=== PATIENT | female | born 1990 | race Caucasian/White ===

== ENCOUNTER 2016-06-14 07:05 | Emergency (ER) | payer BC ==
[~2016-06-14] VITALS: Ht 154.9 cm; Wt 51.3 kg
[2016-06-14 07:09] VITALS: BP 121/79; PULSE 102; RESP 16; TEMP 99.2; O2SAT 96
[2016-06-14 07:15] VITALS: BP 121/79; PULSE 102; RESP 16; TEMP 99.2; O2SAT 96
[2016-06-14] MEDS ORDERED: ZOFR4TAB PO (07:34)
--- NOTE | 2016-06-14 07:36 | PD ---
HPI Chief Complaint: Cold / Flu Symptoms Time Seen by Provider: 07:19 Travel History International Travel<30 days: No Contact w/Intl Traveler<30days: No Traveled to known affect area: No History of Present Illness HPI The patient was seen and examined in the presence of the nurse. Patient complains of flulike symptoms. She complains of nausea and vomiting and diarrhea and muscle aches and low-grade fever and congestion and cough. Symptoms severity is moderate. Duration 3 days PFSH Past Medical History Medical History: Denies Significant Hx Diminished Hearing: No Influenza Vaccination: No ?: Not LMP: 05/29/16 : 1 : 1 Ovarian Cysts: Yes Past Surgical History Appendectomy: Yes Social History Alcohol Use: No Tobacco Use: No Substance Use: No Allergies-Medications (Allergen,Severity, Reaction): Coded Allergies: No Known Allergies (Unverified , 06/14/16) Reported Meds & Prescriptions Reported Meds & Active Scripts Active No Active Prescriptions or Reported Medications Review of Systems General / Constitutional: Positive: Fever HENT: No: Headaches Cardiovascular: No: Chest Pain or Discomfort Respiratory: Positive: Cough Physical Exam Narrative GENERAL: Well-nourished, well-developed patient. SKIN: Warm and dry. HEAD: Normocephalic. EYES: No scleral icterus. No injection or drainage. NECK: Supple, trachea midline. No JVD or lymphadenopathy. CARDIOVASCULAR: Regular rate and rhythm without murmurs, gallops, or rubs. RESPIRATORY: Breath sounds equal bilaterally. No accessory muscle use. GASTROINTESTINAL: Abdomen soft, non-tender, nondistended. MUSCULOSKELETAL: No cyanosis, or edema. BACK: Nontender without obvious deformity. No CVA tenderness. Data Data Last Documented VS Vital Signs Date Time Temp Pulse Resp B/P Pulse Ox O2 Delivery O2 Flow Rate FiO2 06/14/16 07:15 99.2 102 16 121/79 96 06/14/16 07:09 Room Air MDM Medical Decision Making Medical Screen Exam Complete: Yes Emergency Medical Condition: Yes Medical Record Reviewed: Yes Differential Diagnosis Flu syndrome, bronchitis, URI Narrative Course I have reviewed the patient's electronic medical record. Patient's exam is benign and vitals normal May have a flulike illness Zofran prescribed Spontaneous resolution is expected Diagnosis Primary Impression: Acute viral syndrome Additional Impression: Nausea vomiting and diarrhea Additional Instructions: The patient was advised to follow up with their physician and return if they worsen. I have recommended clear liquids for 24 hours, then gradually advance as tolerated. Med/Other Pt SpecificInfo: Prescription(s) given Scripts Ondansetron (Zofran)4 Mg Tab4 Mg PO Q6HR PRN (NAUSEA OR VOMITING) #10 TAB Ref 0 Prov:Justin Wilcox MD 06/14/16 Disposition: 01 DISCHARGE HOME Condition: Stable Justin Wilcox MD Jun 14, 2016 07:35
== END 2016-06-14 07:49 | disposition home or self-care (01) ==
LOC: PHED 07:05
DX: B34.9 Viral infection, unspecified (principal)
CPT/HCPCS: 99283

== ENCOUNTER 2017-05-21 14:51 | Emergency (ER) | payer BC, MEDICAID ==
[~2017-05-21 14:51] MED LIST: ZOFR4TAB PO
--- NOTE | 2017-05-21 15:47 | PD ---
HPI Chief Complaint Lower abdominal pain low back pain today after working today and she is supposed to work tomorrow she states that she has been working more than she should have working as many 6 days a week now Date Seen: May 21, 2017 Time Seen: 15:36 Travel History International Travel<30 Days: No Contact w/Intl Traveler<30Days: No Known Affected Area: No History of Present Illness HPI Patient is 26-year-old white female at [address] Schmidt of her care complains of lower abdominal pain and low back pain after working too much today and recently. Patient went from working 3 days a week to now 6 days a week and she has overdone it. She has not rachelle heart tones are reactive and she has no bleeding or leakage Weeks Gestation: 31 Para: 0 : 2 Miscarriage: 1 History Obstetric History Obstetric History 1 early loss Social History Alcohol Use: No Tobacco Use: No Substance Abuse: No Allergies-Medications (Allergen,Severity, Reaction): Coded Allergies: No Known Allergies (Unverified , 06/14/16) Home Meds Active Scripts Ondansetron (Zofran) 4 Mg Tab, 4 MG PO Q6HR Y for NAUSEA OR VOMITING, #10 TAB 0 Refills Prov:Justin Wilcox MD 06/14/16 Review of Systems General / Constitutional: No: Fever, Weight Gain, Chills, Other Eyes: No: Diploplia, Blurred Vision, Visual changes, Pain, Photophobia HENT: No: Headaches, Vertigo, Lightheadedness Cardiovascular: No: Irregular Rhythm, Chest Pain or Discomfort, Palpitations, Tachycardia, Syncope, Varicosities, Edema, Cyanosis Respiratory: No: Cough, Short of Breath, Other Gastrointestinal: Abdominal Pain, No: Nausea, Vomiting, Diarrhea Genitourinary: No: Decreased Urinary Output, Oliguria Musculoskeletal: No: Limited ROM, Weakness, Cramping, Edema, Pain Skin: No Rash, No Itching, No Dryness, No Lumps, No Change in Pigmentation, No Change in Nails, No Alopecia, No Lesions Neurologic: No: Weakness, Dizziness, Syncope, Focal Abnormalities, Coordination Problem, Headache, Slurred Speech, Seizures Psychiatric: No: Depression, Suicidal Ideations, Homicidal Ideation Endocrine: No: Heat Intolerance, Cold Intolerance, Polydipsia, Polyuria, Other Physical Exam Narrative GENERAL: Well-nourished, well-developed patient. SKIN: Warm and dry. HEAD: Normocephalic and atraumatic. EYES: No scleral icterus. No injection or drainage. ENT: No nasal drainage noted. Mucous membranes pink. Airway patent. NECK: Supple, trachea midline. No JVD. CARDIOVASCULAR: Regular rate and rhythm without murmurs, gallops, or rubs. RESPIRATORY: Breath sounds equal bilaterally. No accessory muscle use. BREASTS: Bilateral exam showed no masses , no retractions, no nipple discharge. ABDOMEN/GI: Abdomen soft, non-tender, bowel sounds present, no rebound, no guarding Gravid to [-31] weeks size Fundal Height: [31-] GENITOURINARY: External Genitalia: intact and normal in appearance BUS glands: [-] Cervix: [post-] Dilatation: [0-] Effacement: [0-] Station: [-3] Membranes: [intact ] Uterine Contractions: [none-] FHT's: Category: [1-] Baseline: [133-] Reactive: [R-] Variability: [mod-] Decels: [none-] EXTREMITIES: No cyanosis or edema. BACK: Nontender without obvious deformity. No CVA tenderness. NEUROLOGICAL: Awake and alert. Motor and sensory grossly within normal limits. Five out of 5 muscle strength in all muscle groups. Normal speech. Data Data Labs Urine dip on oh BD is negative except for trace blood and trace leukocyte esterase MDM Interpretation(s) Patient is 26-year-old white female A1 at 31 weeks who sees [facility] for care presents planning a lower abdominal pain and low back pain today. And this seems to be work-related stress and soft tissue strain more than anything else. She is not rachelle her urine is negative. heart tones reactive and she is not having any contractions on the monitor. Urine shows only a trace of blood and leukocyte esterase otherwise negative. Plan Plan for the patient to hydrate with fluids at home, Tylenol liberally for pain , heating pad in the front and back if needed, hot bath if needed for pain relief. She is to increase her fluids for hydration. And bedrest as much as possible. We will work note for tomorrow so she can stay in bed Diagnosis Diagnosis: Primary Impression: Lower abdominal pain Additional Impressions: Low back pain during in third trimester 31 weeks gestation of Disposition: 01 DISCHARGE HOME Condition: Stable Departure Forms: Work Release Enter return to work date: May 23, 2017 Special Instructions: bedrest when having pain in Ld Clement II, MD May 21, 2017 15:46
== END 2017-05-21 16:06 | disposition home or self-care (01) ==
LOC: HOBED 14:51
DX: O26.893 Other specified pregnancy related conditions, third trimester (principal); M54.5 Low back pain; R10.30 Lower abdominal pain, unspecified; Z3A.31 31 weeks gestation of pregnancy
CPT/HCPCS: 99284

== ENCOUNTER 2017-05-31 11:34 | Observation (INO) | payer MEDICAID ==
[~2017-05-31] VITALS: Ht 167.6 cm; Wt 68.0 kg
[2017-05-31] MEDS ORDERED: ONDANSETRON HCL 4 MG/2 ML VIAL ONE ×2 (12:54→19:37)
[2017-05-31 13:13] LABS: AUTOMATED NEUTROPHIL # 15.7 TH/MM3 (1.8-7.7); BASOPHIL % 0.2 % (0.0-2.0); EOSINOPHIL # 0.1 TH/MM3 (0-0.4); EOSINOPHIL % 0.4 % (0.0-4.0); HEMATOCRIT 32.4 % (35.0-46.0); HEMOGLOBIN 10.6 GM/DL (11.6-15.3); LYMPH % 8.6 % (9.0-44.0); LYMPHOCYTE # 1.6 TH/MM3 (1.0-4.8); MEAN CELL VOLUME 85.4 FL (80.0-100.0); MEAN CORPUSCULAR HEMOGLOBIN 27.9 PG (27.0-34.0); MEAN CORPUSCULAR HGB CONC 32.7 % (32.0-36.0); MEAN PLATELET VOLUME 9.3 FL (7.0-11.0); MONO % 7.6 % (0.0-8.0); MONOCYTE # 1.4 TH/MM3 (0-0.9); NEUT % 83.2 % (16.0-70.0); PLATELET COUNT 231 TH/MM3 (150-450); RED BLOOD COUNT 3.79 MIL/MM3 (4.00-5.30); RED CELL DISTRIBUTION WIDTH 12.8 % (11.6-17.2); WHITE BLOOD COUNT 18.8 TH/MM3 (4.0-11.0)
[2017-05-31 13:56] LABS: BACTERIA, URINE RARE /hpf; BILIRUBIN, URINE NEG (NEG); BLOOD, URINE MOD (NEG); GLUCOSE,URINE NEG (NEG); KETONE, URINE TRACE mg/dL (NEG); NITRITE,URINE NEG (NEG); SQUAMOUS EPITHELIAL CELL URINE 12 /hpf (0-5); TRANSITIONAL EPI CELLS, URINE <1 /hpf; URINE COLOR LIGHT-YELLOW (YELLW/STRAW); URINE LEUKOCYTE ESTERASE SMALL (NEG)
[2017-05-31 13:58] LABS: BICARBONATE 21.7 MEQ/L (21.0-32.0); CALCIUM 8.8 MG/DL (8.5-10.1); CREATININE 0.63 MG/DL (0.50-1.00)
--- NOTE | 2017-05-31 14:41 | RADRPT ---
EXAM DATE/TIME: 05/31/2017 13:48 [facility] COMPARISON: No previous studies available for comparison. INDICATIONS : Flank pain. MEDICAL HISTORY : 33 weeks . Ovarian cysts. SURGICAL HISTORY : Appendectomy. ENCOUNTER: Initial ACUITY: 1 day PAIN SCORE: 3/10 LOCATION: Bilateral flank MEASUREMENTS: RIGHT KIDNEY: 10.0 x 5.4 x 6.3 cm LEFT KIDNEY: 12.1 x 6.5 x 5.8 cm FINDINGS: RIGHT KIDNEY: Renal cortex is normal in thickness and echotexture. No hydronephrosis, stone, or mass. LEFT KIDNEY: Renal cortex is normal in thickness and echotexture. No hydronephrosis, stone, or mass. BLADDER: Nonvisualized. CONCLUSION: Unremarkable bilateral renal ultrasound. No evidence of hydronephrosis. Naeem Friend MD on May 31, 2017 at 14:39 Board Certified Radiologist. This report was verified electronically.
--- NOTE | 2017-05-31 19:01 | HHI.HP ---
History & Physical H&P HPI Chief Complaint flank pain Date Seen: May 31, 2017 Time Seen: 18:32 Travel History International Travel<30 Days: No Contact w/Intl Traveler<30Days: No Known Affected Area: No History of Present Illness HPI pt. presents w/ c/o severe left falnk pain. pt. is a @ [address] Ward states she had sudden onset of severe right sided flank pain. pt. states at worst was 10/10, but constan 7-8/10. pt. denies n/v , fever/chills, voiding w/o diff. pt. states no dysuria, but noticed that her urine has been blood tinged since just before the pain began at 10 pm last night. pt. also notes some groin discomfort. +FM, no lof/vb. pt. have ua here show large blood and rbcs. also show ketones and minimal bacteria and ian lulu. pt. have renal us show no hydro or stones. pt. w/ h/o stones. Weeks Gestation: 33 Para: 0 : 2 History Past Medical History Medical History: Denies Significant Hx Past Surgical History Surgical History: No Previous Surgery Family History Family History: Negative Social History Alcohol Use: No Tobacco Use: No Substance Abuse: No Allergies-Medications (Allergen,Severity, Reaction): Coded Allergies: No Known Allergies (Unverified , 06/14/16) Home Meds Active Scripts Ondansetron (Zofran) 4 Mg Tab, 4 MG PO Q6HR Y for NAUSEA OR VOMITING, #10 TAB 0 Refills Prov:Justin Wilcox MD 06/14/16 Review of Systems Except as stated in HPI: all other systems reviewed are Neg Physical Exam Vital Signs Date Time Temp Pulse Resp B/P (MAP) Pulse Ox O2 Delivery O2 Flow Rate FiO2 05/31/17 14:30 18 Narrative GENERAL: Well-nourished, well-developed patient. SKIN: Warm and dry. HEAD: Normocephalic and atraumatic. EYES: No scleral icterus. No injection or drainage. ENT: No nasal drainage noted. Mucous membranes pink. Airway patent. NECK: Supple, trachea midline. No JVD. CARDIOVASCULAR: Regular rate and rhythm without murmurs, gallops, or rubs. RESPIRATORY: Breath sounds equal bilaterally. No accessory muscle use. BREASTS: Bilateral exam showed no masses , no retractions, no nipple discharge. ABDOMEN/GI: Abdomen soft, non-tender, bowel sounds present, no rebound, no guarding Gravid to FHT's: Category: 1 Reactive: + Variability: mod Decels: none TOCO: irreg ctxs EXTREMITIES: No cyanosis or edema. BACK: Nontender without obvious deformity. left flank and cva tenderness. NEUROLOGICAL: Awake and alert. Motor and sensory grossly within normal limits. Five out of 5 muscle strength in all muscle groups. Normal speech. Data Data Vital Signs Reviewed: Yes Orders Orders Us Kidney/Renal/Bladder (05/31/17 ) Complete Blood Count With Diff (05/31/17 12:35) Basic Metabolic Panel (Bmp) (05/31/17 12:35) Urinalysis - C+S If Indicated (05/31/17 12:35) Fentanyl Inj (Fentanyl Inj) (05/31/17 12:45) Ondansetron Inj (Zofran Inj) (05/31/17 12:54) Ct Abd/Pel W/O Iv Contrast (05/31/17 ) Ob (2e) Additional Admit Info (05/31/17 18:12) Labs Laboratory Tests Test 05/31/17 12:16 05/31/17 12:50 Urine Color LIGHT-YELLOW Urine Turbidity HAZY Urine pH 6.0 Urine Specific Panther 1.011 Urine Protein NEG Urine Glucose (UA) NEG Urine Ketones TRACE Urine Occult Blood MOD Urine Nitrite NEG Urine Bilirubin NEG Urine Urobilinogen LESS THAN 2.0 Urine Leukocyte Esterase SMALL Urine RBC 41 Urine WBC 7 Urine Squamous Epithelial Cells 12 Urine Transitional Epithelial Cells <1 Urine Bacteria RARE Microscopic Urinalysis Comment CULT NOT INDICATED White Blood Count 18.8 Red Blood Count 3.79 Hemoglobin 10.6 Hematocrit 32.4 Mean Corpuscular Volume 85.4 Mean Corpuscular Hemoglobin 27.9 Mean Corpuscular Hemoglobin Concent 32.7 Red Cell Distribution Width 12.8 Platelet Count 231 Mean Platelet Volume 9.3 Neutrophils (%) (Auto) 83.2 Lymphocytes (%) (Auto) 8.6 Monocytes (%) (Auto) 7.6 Eosinophils (%) (Auto) 0.4 Basophils (%) (Auto) 0.2 Neutrophils # (Auto) 15.7 Lymphocytes # (Auto) 1.6 Monocytes # (Auto) 1.4 Eosinophils # (Auto) 0.1 Basophils # (Auto) 0.0 CBC Comment DIFF FINAL Differential Comment Blood Urea Nitrogen 8 Creatinine 0.63 Random Glucose 74 Calcium Level 8.8 Sodium Level 137 Potassium Level 3.7 Chloride Level 104 Carbon Dioxide Level 21.7 Anion Gap 11 Estimat Glomerular Filtration Rate 113 MDM Medical Record Reviewed: Yes Plan pt. is a @ 33 weeks w/ ? ureteral stone. condition d/w pt. pt. been receiving fentanyl iv for pain and will continue as controls her pain. pt. to have ct scan to r/o stone. ct scan d/w pt. risks/benefits and alternatives d/ w pt. all ? answered and pt. show understanding of ct. pt. to continue w/ iv fluids. fht reassuring. will admit for observation and pain control. Diagnosis Diagnosis: Primary Impression: Renal and ureteric calculus Additional Impressions: Acute flank pain 33 weeks gestation of Gallo Bright Jr., MD, Arthur N. Jr. MD May 31, 2017 19:01
[2017-05-31] MEDS ORDERED: ACETAMINOPHEN 1000 MG/100 ML 100 ML IV ONE (21:42)
[2017-05-31] MEDS: LACTATED RINGER'S 1000 ML INJ 1,000 ML IV SCH (22:52)
[2017-05-31] MEDS: ZOLPIDEM TARTRATE 5 MG TAB PO PRN (22:52)
[2017-05-31] MEDS ORDERED: ACETAMINOPHEN 1000 MG/100 ML 100 ML IV PRN (23:00)
--- NOTE | 2017-05-31 23:35 | RADRPT ---
EXAM DATE/TIME: 05/31/2017 20:02 [facility] COMPARISON: US KIDNEY/RENAL/BLADDER, May 31, 2017, 13:48. CT ABDOMEN & PELVIS W/O CONTRAST, January 02, 2014, 7:24. INDICATIONS : Left flank pain. ORAL CONTRAST: No oral contrast ingested. RADIATION DOSE: 4.74 CTDIvol (mGy) MEDICAL HISTORY : Ovarian cysts. 33 weeks . SURGICAL HISTORY : Appendectomy. ENCOUNTER: Initial ACUITY: 3 days PAIN SCALE: 10/10 LOCATION: Left flank TECHNIQUE: Volumetric scanning of the abdomen and pelvis was performed. Using automated exposure control and ad justment of the mA and/or kV according to patient size, radiation dose was kept as low as reasonably achievable to obtain optimal diagnostic quality images. DICOM format image data is available electro nically for review and comparison. FINDINGS: LOWER LUNGS: The visualized lower lungs are clear. LIVER: Homogeneous density without lesion. There is no dilation of the biliary tree. No calcified gallston es. SPLEEN: Normal size without lesion. PANCREAS: Within normal limits. KIDNEYS: Normal in size and shape. No mass is visualized on this noncontrast examination. There are at least 4 nonobstructing right renal stones identified measuring up to 4 mm. There is a 2 mm and 10 mm left n onobstructing renal stone. A 5 x 3 mm stone is present in the left extrarenal pelvis at the ureterope lvic junction and there is mild distention of the left collecting system. ADRENAL GLANDS: Within normal limits. VASCULAR: There is no aortic aneurysm. BOWEL/MESENTERY: The stomach, small bowel, and colon demonstrate no acute abnormality. There is no free intraperitone al air or fluid. ABDOMINAL WALL: Within normal limits. RETROPERITONEUM: There is no lymphadenopathy. BLADDER: No wall thickening or mass. REPRODUCTIVE: The patient is with a single intrauterine gestation identified in a cephalic presentation. E xamination was not performed for evaluation of the fetus but no anomaly is appreciated. The eladia centa is anteriorly located. INGUINAL: There is no lymphadenopathy or hernia. MUSCULOSKELETAL: No acute abnormality. CONCLUSION: 1. There is a 5 x 3 mm stone in the left extrarenal pelvis at the ureteropelvic junction causing mild asymmetric left hydronephrosis. 2. There are 2 additional nonobstructing left renal stones measuring up to 10 mm and there are at [address] [facility] 4 nonobstructing right renal stones measuring up to 4 mm. Yosvany Urbina MD on May 31, 2017 at 23:27 Board Certified Radiologist. This report was verified electronically.
[2017-06-01] MEDS ORDERED: MORPHINE SULFATE 2 MG/ML INJ IV PRN (04:00)
[2017-06-01] MEDS: TAMSULOSIN HCL 0.4 MG CAP PO SCH (08:57)
[2017-06-01] MEDS: HYDROmorphone HCL PF 2 MG/ML VIAL IV PUSH PRN ×4 (08:57→22:28)
[2017-06-01] MEDS: ONDANSETRON HCL 4 MG/2 ML VIAL IV PUSH PRN ×2 (08:57→14:36)
--- NOTE | 2017-06-01 09:50 | PD.OB.ANTE ---
Subjective Interval History 33 week , Left ureteral stone, pain scale 8-9/10. Objective Vital Signs Vital Signs Date Time Temp Pulse Resp B/P (MAP) Pulse Ox O2 Delivery O2 Flow Rate FiO2 06/01/17 02:00 16 Lab & Micro Results Test 05/31/17 12:16 05/31/17 12:50 Urine Color LIGHT-YELLOW Urine Turbidity HAZY Urine pH 6.0 Urine Specific Anderson 1.011 Urine Protein NEG mg/dL Urine Glucose (UA) NEG mg/dL Urine Ketones TRACE mg/dL Urine Occult Blood MOD Urine Nitrite NEG Urine Bilirubin NEG Urine Urobilinogen LESS THAN 2.0 MG/DL Urine Leukocyte Esterase SMALL Urine RBC 41 /hpf Urine WBC 7 /hpf Urine Squamous Epithelial Cells 12 /hpf Urine Transitional Epithelial Cells <1 /hpf Urine Bacteria RARE /hpf Microscopic Urinalysis Comment CULT NOT INDICATED Urine Opiates Screen NEG Urine Barbiturates Screen NEG Urine Amphetamines Screen NEG Urine Benzodiazepines Screen NEG Urine Cocaine Screen NEG Urine Cannabinoids Screen NEG White Blood Count 18.8 TH/MM3 Red Blood Count 3.79 MIL/MM3 Hemoglobin 10.6 GM/DL Hematocrit 32.4 % Mean Corpuscular Volume 85.4 FL Mean Corpuscular Hemoglobin 27.9 PG Mean Corpuscular Hemoglobin Concent 32.7 % Red Cell Distribution Width 12.8 % Platelet Count 231 TH/MM3 Mean Platelet Volume 9.3 FL Neutrophils (%) (Auto) 83.2 % Lymphocytes (%) (Auto) 8.6 % Monocytes (%) (Auto) 7.6 % Eosinophils (%) (Auto) 0.4 % Basophils (%) (Auto) 0.2 % Neutrophils # (Auto) 15.7 TH/MM3 Lymphocytes # (Auto) 1.6 TH/MM3 Monocytes # (Auto) 1.4 TH/MM3 Eosinophils # (Auto) 0.1 TH/MM3 Basophils # (Auto) 0.0 TH/MM3 CBC Comment DIFF FINAL Differential Comment Blood Urea Nitrogen 8 MG/DL Creatinine 0.63 MG/DL Random Glucose 74 MG/DL Calcium Level 8.8 MG/DL Sodium Level 137 MEQ/L Potassium Level 3.7 MEQ/L Chloride Level 104 MEQ/L Carbon Dioxide Level 21.7 MEQ/L Anion Gap 11 MEQ/L Estimat Glomerular Filtration Rate 113 ML/MIN Physical Exam GENERAL: Well-nourished, well-developed patient. CARDIOVASCULAR: Regular rate and rhythm without murmurs, gallops, or rubs. RESPIRATORY: Breath sounds equal bilaterally. No accessory muscle use. ABDOMEN/GI: Abdomen soft, non-tender. GENITOURINARY: External Genitalia: intact and normal in appearance FHT's: Category: 1 EXTREMITIES: No cyanosis or edema, non-tender, without signs of DVT. Assessment and Plan Assessment and Plan 33 week, left ureteral stone, 5mm ,mild left hydronephrosis. Is obstetrically stable; Case d/w Dr Alexis,urologist who was consulted added dilaudid and flomax. Sony De La Rosa MD Jun 01, 2017 09:50
[2017-06-01 13:06] LABS: AUTOMATED NEUTROPHIL # 13.6 TH/MM3 (1.8-7.7); BASOPHIL % 0.3 % (0.0-2.0); EOSINOPHIL % 0.2 % (0.0-4.0); HEMATOCRIT 29.3 % (35.0-46.0); HEMOGLOBIN 9.8 GM/DL (11.6-15.3); LYMPH % 9.4 % (9.0-44.0); LYMPHOCYTE # 1.5 TH/MM3 (1.0-4.8); MEAN CELL VOLUME 85.3 FL (80.0-100.0); MEAN CORPUSCULAR HEMOGLOBIN 28.7 PG (27.0-34.0); MEAN CORPUSCULAR HGB CONC 33.6 % (32.0-36.0); MEAN PLATELET VOLUME 9.6 FL (7.0-11.0); MONO % 6.8 % (0.0-8.0); MONOCYTE # 1.1 TH/MM3 (0-0.9); NEUT % 83.3 % (16.0-70.0); PLATELET COUNT 203 TH/MM3 (150-450); RED BLOOD COUNT 3.43 MIL/MM3 (4.00-5.30); RED CELL DISTRIBUTION WIDTH 12.7 % (11.6-17.2); WHITE BLOOD COUNT 16.3 TH/MM3 (4.0-11.0)
[2017-06-01] MEDS ORDERED: PROMETHAZINE INJ 25 MG/ML VIAL IM PRN (14:30)
--- NOTE | 2017-06-01 14:45 | PD.CONS ---
HPI Service Urology Consult Requested By Dr. De La Rosa Reason for Consult Left flank pain secondary to obstructing calculus Primary Care Physician No Primary Care Physician Diagnosis: History of Present Illness 26-year-old female who is 33 weeks and presented to the emergency room with acute onset left flank pain. Workup included a CT scan that demonstrated multiple bilateral renal calculi as well as an obstructing 5 mm left proximal ureteral calculus. A renal ultrasound study was also performed that failed to demonstrate any significant hydronephrosis. Patient has required large amounts of analgesic medication for pain relief and a urology consult placed for recommendations. Patient denies fever or shaking chills. Review of Systems Constitutional: DENIES: Fever, Chills Cardiovascular: DENIES: Chest pain Genitourinary: DENIES: Hematuria, Dysuria Musculoskeletal: COMPLAINS OF: Back pain (Left flank) Except as stated in HPI: all other systems reviewed are Neg Past Family Social History Past Medical History No prior significant past medical history Past Surgical History Denies prior surgical history Reported Medications Refer to EMR Allergies: Coded Allergies: No Known Allergies (Unverified Allergy, Unknown, 05/31/17) Active Ordered Medications Refer to EMR Family History Reviewed and noncontributory Social History Denies tobacco, alcohol or intravenous drug abuse Physical Exam Vital Signs Date Time Temp Pulse Resp B/P (MAP) Pulse Ox O2 Delivery O2 Flow Rate FiO2 06/01/17 14:30 16 06/01/17 02:00 16 Physical Exam GENERAL: This is a well-nourished, well-developed patient, in no apparent distress. SKIN: No rashes, ecchymoses or lesions. Cool and dry. HEAD: Atraumatic. Normocephalic. No temporal or scalp tenderness. EYES: Pupils equal round and reactive. Extraocular motions intact. No scleral icterus. No injection or drainage. ENT: Nose without bleeding, purulent drainage or septal hematoma. Throat without erythema, tonsillar hypertrophy or exudate. Uvula midline. Airway patent. NECK: Trachea midline. No JVD or lymphadenopathy. Supple, nontender, no meningeal signs. CARDIOVASCULAR: Regular rate and rhythm without murmurs, gallops, or rubs. RESPIRATORY: Clear to auscultation. Breath sounds equal bilaterally. No wheezes , rales, or rhonchi. GASTROINTESTINAL: Abdomen soft, non-tender, consistent with gravid uterus of 33 weeks gestation GENITOURINARY: No CVA tenderness MUSCULOSKELETAL: Extremities without clubbing, cyanosis, or edema. No joint tenderness, effusion, or edema noted. No calf tenderness. Negative Homans sign bilaterally. NEUROLOGICAL: Awake and alert. Cranial nerves II through XII intact. Motor and sensory grossly within normal limits. Five out of 5 muscle strength in all muscle groups. Normal speech. Lab results reviewed: Yes Laboratory Tests Test 06/01/17 12:30 White Blood Count 16.3 Red Blood Count 3.43 Hemoglobin 9.8 Hematocrit 29.3 Mean Corpuscular Volume 85.3 Mean Corpuscular Hemoglobin 28.7 Mean Corpuscular Hemoglobin Concent 33.6 Red Cell Distribution Width 12.7 Platelet Count 203 Mean Platelet Volume 9.6 Neutrophils (%) (Auto) 83.3 Lymphocytes (%) (Auto) 9.4 Monocytes (%) (Auto) 6.8 Eosinophils (%) (Auto) 0.2 Basophils (%) (Auto) 0.3 Neutrophils # (Auto) 13.6 Lymphocytes # (Auto) 1.5 Monocytes # (Auto) 1.1 Eosinophils # (Auto) 0.0 Basophils # (Auto) 0.0 CBC Comment DIFF FINAL Differential Comment Result Diagram: 06/01/17 1230 05/31/17 1250 Personally reviewed images: Yes Imaging Last Impressions Renal Ultrasound 05/31/17 0000 Signed Impressions: Service Date/Time: Wednesday, May 31, 2017 13:48 - CONCLUSION: Unremarkable bilateral renal ultrasound. No evidence of hydronephrosis. Naeem Friend MD Abdomen/Pelvis CT 05/31/17 0000 Signed Impressions: Service Date/Time: Wednesday, May 31, 2017 20:02 - CONCLUSION: 1. There is a 5 x 3 mm stone in the left extrarenal pelvis at the ureteropelvic junction causing mild asymmetric left hydronephrosis. 2. There are 2 additional nonobstructing left renal stones measuring up to 10 mm and there are at least 4 nonobstructing right renal stones measuring up to 4 mm. Yosvany Urbina MD Assessment and Plan Assessment and Plan Urologic impression: 1. Obstructing 5 mm left proximal ureteral calculus 2. 2 left renal calculi 3. Multiple small nonobstructing right renal calculi Plan: 1. Keep patient n.p.o. after midnight 2. We will bring the patient to the operating room suite tomorrow for cystoscopy and left ureteral stent placement 3. Patient will ultimately require extrapleural shockwave lithotripsy and stent removal sometime after she delivers her child. Aramis Alexis MD Jun 01, 2017 14:45
[2017-06-01] MEDS: LACTATED RINGER'S 1000 ML INJ 1,000 ML IV SCH (17:28)
[2017-06-02] MEDS: HYDROmorphone HCL PF 2 MG/ML VIAL IV PUSH PRN ×4 (02:51→19:28)
[2017-06-02] MEDS ORDERED: METOPROLOL TARTRATE 25 MG TAB PO PRN (08:00)
[2017-06-02] MEDS ORDERED: INSULIN HUMAN REGULAR 1,000 UNITS/10 ML VIAL SQ PRN (08:00)
[2017-06-02] MEDS ORDERED: CHLORHEXIDINE GLUCONATE 2 % 1 PACK (2 CLOTHS) TOPICAL PRN (08:00)
[2017-06-02] MEDS ORDERED: SODIUM CHLORID 0.9% 500 ML IV PRN (08:00)
[2017-06-02] MEDS ORDERED: LACTATED RINGER'S 1000 ML IV PRN (08:00)
[2017-06-02] MEDS ORDERED: POVIDONE IODINE 5% (ANTISEPSIS KIT) 4 APPLICATIONS EACH NARE PRN (08:00)
--- NOTE | 2017-06-02 08:35 | PD.OB.ANTE ---
Subjective Diagnosis: (1) Renal and ureteric calculus Interval History Pt slept well w medications. This am her pain has increased. Good fm, no contractions today, only on day of admission. No lof or vb. Objective Vital Signs Vital Signs Date Time Temp Pulse Resp B/P (MAP) Pulse Ox O2 Delivery O2 Flow Rate FiO2 06/02/17 04:49 14 Lab & Micro Results Test 06/01/17 12:30 White Blood Count 16.3 TH/MM3 Red Blood Count 3.43 MIL/MM3 Hemoglobin 9.8 GM/DL Hematocrit 29.3 % Mean Corpuscular Volume 85.3 FL Mean Corpuscular Hemoglobin 28.7 PG Mean Corpuscular Hemoglobin Concent 33.6 % Red Cell Distribution Width 12.7 % Platelet Count 203 TH/MM3 Mean Platelet Volume 9.6 FL Neutrophils (%) (Auto) 83.3 % Lymphocytes (%) (Auto) 9.4 % Monocytes (%) (Auto) 6.8 % Eosinophils (%) (Auto) 0.2 % Basophils (%) (Auto) 0.3 % Neutrophils # (Auto) 13.6 TH/MM3 Lymphocytes # (Auto) 1.5 TH/MM3 Monocytes # (Auto) 1.1 TH/MM3 Eosinophils # (Auto) 0.0 TH/MM3 Basophils # (Auto) 0.0 TH/MM3 CBC Comment DIFF FINAL Differential Comment Physical Exam GENERAL: Well-nourished, well-developed patient. CARDIOVASCULAR: Regular rate and rhythm without murmurs, gallops, or rubs. RESPIRATORY: Breath sounds equal bilaterally. No accessory muscle use. ABDOMEN/GI: Abdomen soft, non-tender. Fundus: [-] GENITOURINARY: External Genitalia: defer FHT's: Category: I Baseline: 130 Reactive: n Variability:mod Decels: [-] EXTREMITIES: No cyanosis or edema, non-tender, without signs of DVT. Assessment and Plan Problem List: (1) Renal and ureteric calculus ICD Codes: N20.2 - Calculus of kidney with calculus of ureter Status: Acute (2) 33 weeks gestation of ICD Codes: Z3A.33 - 33 weeks gestation of Status: Acute Assessment and Plan 26 yo with iup at 33 week2d , left ureteral stone, 5mm ,mild left hydronephrosis. Is obstetrically stable. Pt will have stent placed by urology today. NPO. On dilaudid , flomax, and Recophin. Kathia Schmidt MD Jun 02, 2017 08:35
[2017-06-02] MEDS: TAMSULOSIN HCL 0.4 MG CAP PO SCH (09:02)
[2017-06-02] MEDS: LACTATED RINGER'S 1000 ML INJ 1,000 ML IV SCH ×3 (09:09→17:31)
[2017-06-02 10:04] LABS: AUTOMATED NEUTROPHIL # 10.2 TH/MM3 (1.8-7.7); BASOPHIL % 0.2 % (0.0-2.0); EOSINOPHIL % 0.4 % (0.0-4.0); HEMATOCRIT 27.3 % (35.0-46.0); HEMOGLOBIN 9.2 GM/DL (11.6-15.3); LYMPH % 10.9 % (9.0-44.0); LYMPHOCYTE # 1.4 TH/MM3 (1.0-4.8); MEAN CELL VOLUME 86.1 FL (80.0-100.0); MEAN CORPUSCULAR HEMOGLOBIN 29.1 PG (27.0-34.0); MEAN CORPUSCULAR HGB CONC 33.8 % (32.0-36.0); MEAN PLATELET VOLUME 9.4 FL (7.0-11.0); MONO % 9.8 % (0.0-8.0); MONOCYTE # 1.3 TH/MM3 (0-0.9); NEUT % 78.7 % (16.0-70.0); PLATELET COUNT 204 TH/MM3 (150-450); RED BLOOD COUNT 3.17 MIL/MM3 (4.00-5.30); RED CELL DISTRIBUTION WIDTH 12.9 % (11.6-17.2)
[2017-06-02 10:18] LABS: ALBUMIN 2.4 GM/DL (3.4-5.0); ALT (GPT) 10 U/L (10-53); AST (GOT) 14 U/L (15-37); BICARBONATE 25.6 MEQ/L (21.0-32.0); BLOOD UREA NITROGEN 6 MG/DL (7-18); CALCIUM 8.4 MG/DL (8.5-10.1); CHLORIDE 107 MEQ/L (98-107); CREATININE 0.91 MG/DL (0.50-1.00); GLOMERULAR FILTRATION RATE 74 ML/MIN (>89); GLUCOSE,RANDOM 80 MG/DL (74-106); SODIUM (NA) 142 MEQ/L (136-145)
[2017-06-02 10:21] LABS: ALKALINE PHOSPHATASE 153 U/L (45-117); TOTAL BILIRUBIN ADULT 0.3 MG/DL (0.2-1.0); TOTAL PROTEIN 5.8 GM/DL (6.4-8.2)
[2017-06-02] MEDS ORDERED: HYDROmorphone HCL PF 2 MG/ML VIAL IV ONE (11:15)
[2017-06-02] MEDS ORDERED: SUCCINYLCHOLINE CHLORIDE 100 MG/5 ML SYRINGE IV PUSH ONE (12:00)
[2017-06-02] MEDS ORDERED: PHENYLEPH/NS 1000 MCG/10 ML SYR IV ONE (12:00)
[2017-06-02] MEDS ORDERED: LIDOCAINE HCL 1% PF 5 ML SYRINGE OTHER ONE (12:00)
[2017-06-02] MEDS ORDERED: PROPOFOL 200 MG/20 ML AMP IV ONE (12:00)
--- NOTE | 2017-06-02 14:02 | PD.OP ---
Operative Report Date of Surgery: Jun 02, 2017 Preoperative Diagnosis: (1) Ureteral calculus, left Postoperative Diagnosis: (1) Ureteral calculus, left Procedure: Cystoscopy and placement of left ureteral stent Anesthesia: General Surgeon: Aramis Alexis Block Sorter(s): None Operation and Findings: Indication for procedures: Case of a pleasant 26-year-old female who is 33 weeks with an obstructing left proximal ureteral calculus who presents now for cystoscopy and placement of a left ureteral stent. Operative procedures in detail: Patient was brought to the operating room suite and placed supine on the cystoscopy table. She was then placed under general anesthesia. She was then repositioned in the dorsal lithotomy position and prepped and draped in normal sterile fashion. After an appropriate timeout was undertaken I proceeded with cystoscopic evaluation utilizing the rigid cystoscope with the 20 Cymraes sheath and 30 lens. Both right and left ureteral orifices were in correct anatomic position. There was clear drainage noted from the right orifice and no drainage noted on the left. I then placed a sensor 0.035 wire up the patient's left ureter until a small amount of resistance was met. I then advanced a optimal long-term 6 Cymraes 24 cm double- J stent over the wire without difficulty. Once the stent was placed, the trailing string was removed. Soon after passing the stent there was some bloody drainage noted from the stent lumen. A decision was made to thus place a 16 Cymraes 10 cc Jimenez catheter. The patient tolerated the procedures without complications and was transferred to the PACU in satisfactory condition. Aramis Alexis MD Jun 02, 2017 14:02
[2017-06-02 15:15] VITALS: BP 116/58; PULSE 95; TEMP 97.6; O2SAT 96
[2017-06-02] MEDS ORDERED: DO NOT ADM ANY ANTICOAGULANT DRUGS PRN (15:45)
[2017-06-02] MEDS: oxyCODONE/ACETAMINOPHEN 10 MG/325 MG TAB PO PRN ×2 (18:21→22:20)
[2017-06-03] MEDS: LACTATED RINGER'S 1000 ML INJ 1,000 ML IV SCH ×3 (04:00→23:50)
[2017-06-03] MEDS: oxyCODONE/ACETAMINOPHEN 10 MG/325 MG TAB PO PRN ×2 (05:13→10:25)
--- NOTE | 2017-06-03 08:41 | PD.OB.ANTE ---
Subjective Diagnosis: (1) Renal and ureteric calculus (2) 33 weeks gestation of Interval History IUP at 33 3/7 wks , s/p left stent by Dr Alexis 06/02/17, feeling better on po percocet 10mg now, +FM , no ctx, will give celestone prior to d/c Objective Vital Signs Vital Signs Date Time Temp Pulse Resp B/P (MAP) Pulse Ox O2 Delivery O2 Flow Rate FiO2 06/02/17 19:45 18 06/02/17 15:15 97.6 95 16 116/58 (77) 96 Room Air 06/02/17 15:00 97 16 117/60 (79) 95 Room Air 06/02/17 14:45 98 16 115/61 (79) 95 Room Air 06/02/17 14:30 99 16 118/62 (80) 98 Nasal Cannula 2 06/02/17 14:15 100 16 119/66 (83) 99 Nasal Cannula 3 06/02/17 14:08 98.6 108 16 123/68 (86) 96 Nasal Cannula 3 Lab & Micro Results Test 06/02/17 09:30 White Blood Count 13.0 TH/MM3 Red Blood Count 3.17 MIL/MM3 Hemoglobin 9.2 GM/DL Hematocrit 27.3 % Mean Corpuscular Volume 86.1 FL Mean Corpuscular Hemoglobin 29.1 PG Mean Corpuscular Hemoglobin Concent 33.8 % Red Cell Distribution Width 12.9 % Platelet Count 204 TH/MM3 Mean Platelet Volume 9.4 FL Neutrophils (%) (Auto) 78.7 % Lymphocytes (%) (Auto) 10.9 % Monocytes (%) (Auto) 9.8 % Eosinophils (%) (Auto) 0.4 % Basophils (%) (Auto) 0.2 % Neutrophils # (Auto) 10.2 TH/MM3 Lymphocytes # (Auto) 1.4 TH/MM3 Monocytes # (Auto) 1.3 TH/MM3 Eosinophils # (Auto) 0.0 TH/MM3 Basophils # (Auto) 0.0 TH/MM3 CBC Comment DIFF FINAL Differential Comment Blood Urea Nitrogen 6 MG/DL Creatinine 0.91 MG/DL Random Glucose 80 MG/DL Total Protein 5.8 GM/DL Albumin 2.4 GM/DL Calcium Level 8.4 MG/DL Alkaline Phosphatase 153 U/L Aspartate Amino Transf (AST/SGOT) 14 U/L Alanine Aminotransferase (ALT/SGPT) 10 U/L Total Bilirubin 0.3 MG/DL Sodium Level 142 MEQ/L Potassium Level 3.6 MEQ/L Chloride Level 107 MEQ/L Carbon Dioxide Level 25.6 MEQ/L Anion Gap 9 MEQ/L Estimat Glomerular Filtration Rate 74 ML/MIN Physical Exam GENERAL: Well-nourished, well-developed patient. CARDIOVASCULAR: Regular rate and rhythm without murmurs, gallops, or rubs. RESPIRATORY: Breath sounds equal bilaterally. No accessory muscle use. ABDOMEN/GI: Abdomen soft, non-tender. Fundus: [-] GENITOURINARY: External Genitalia: intact and normal in appearance Cervix: [-] deferred Dilatation: [-] Effacement: [-] Station: [-] Presentation: [-] Membranes: [-] Uterine Contractions: [-] FHT's: Category: [-] 1 Baseline: [-] Reactive: [-] Variability: [-] Decels: [-] no EXTREMITIES: No cyanosis or edema, non-tender, without signs of DVT. Assessment and Plan Problem List: (1) Renal and ureteric calculus ICD Codes: N20.2 - Calculus of kidney with calculus of ureter Status: Acute (2) 33 weeks gestation of ICD Codes: Z3A.33 - 33 weeks gestation of Status: Acute Assessment and Plan 26 yo with iup at 33 week3d , left ureteral stone, 5mm ,mild left hydronephrosis. Is obstetrically stable. Pt had stent placed 06/02/17, will give celestone 12 mg IM now and repeat in 12 hrs, consider d/c home on po percocet, macrobid, flomax later f/u Dr Schmidt, Dr Alexis in 1 wk Shanon Willoughby MD Jun 03, 2017 08:41
[2017-06-03] MEDS: TAMSULOSIN HCL 0.4 MG CAP PO SCH (09:08)
[2017-06-03] MEDS: BETAMETHASONE SOD PHOS/ACETATE SUSP 30 MG/5 ML VIAL IM SCH ×2 (09:10→21:01)
[2017-06-03] MEDS: oxyCODONE/ACETAMINOPHEN 5 MG/325 MG TAB PO PRN (18:36)
[2017-06-03 19:23] VITALS: RESP 16
[2017-06-03] MEDS: ZOLPIDEM TARTRATE 5 MG TAB PO PRN (22:12)
[2017-06-04] MEDS: oxyCODONE/ACETAMINOPHEN 5 MG/325 MG TAB PO PRN (04:40)
[2017-06-04] MEDS: oxyCODONE/ACETAMINOPHEN 10 MG/325 MG TAB PO PRN (08:02)
[2017-06-04] MEDS ORDERED: NITROFURANTOIN MONOHYD MACROCR 100 MG CAP PO SCH (09:00)
--- NOTE | 2017-06-04 09:00 | PD.OB.ANTE ---
Subjective Diagnosis: (1) Renal and ureteric calculus (2) 33 weeks gestation of Interval History s/p stent placement, got celestone, ready for discharge, +FM Objective Vital Signs Vital Signs Date Time Temp Pulse Resp B/P (MAP) Pulse Ox O2 Delivery O2 Flow Rate FiO2 06/03/17 19:23 16 Physical Exam GENERAL: Well-nourished, well-developed patient. CARDIOVASCULAR: Regular rate and rhythm without murmurs, gallops, or rubs. RESPIRATORY: Breath sounds equal bilaterally. No accessory muscle use. ABDOMEN/GI: Abdomen soft, non-tender. Fundus: [-] GENITOURINARY: External Genitalia: intact and normal in appearance Cervix: [-] deferred Dilatation: [-] Effacement: [-] Station: [-] Presentation: [-] Membranes: [-] Uterine Contractions: [-] FHT's: Category: [-] 1 Baseline: [-] Reactive: [-] R Variability: [-] Decels: [-] EXTREMITIES: No cyanosis or edema, non-tender, without signs of DVT. Assessment and Plan Problem List: (1) Renal and ureteric calculus ICD Codes: N20.2 - Calculus of kidney with calculus of ureter Status: Acute (2) 33 weeks gestation of ICD Codes: Z3A.33 - 33 weeks gestation of Status: Acute Assessment and Plan 26 yo with iup at 33 week3d , left ureteral stone, 5mm ,mild left hydronephrosis. Is obstetrically stable. Pt had stent placed 06/02/17, consider d/c home on po percocet, macrobid, flomax , got celestone f/u Dr Schmidt, Dr Alexis in 1 wk Shanon Willoughby MD Jun 04, 2017 09:00
[2017-06-04] MEDS ORDERED: TAMS5CAP PO (09:02)
[2017-06-04] MEDS ORDERED: NITR100C4 PO (09:02)
--- NOTE | 2017-06-04 09:03 | HHI.DCPOC ---
Discharge Care Plan Your Health Problems Are: Urinary difficulties Report Symptoms to Your Doctor -Temperature above 100.5 degrees -Redness, of incision or excessive or foul smelling drainage -Unusual pain or calf pain -Increased vaginal bleeding -Painful or difficulty urinating -Feelings of extreme sadness or anxiety after 2 weeks Goals to Promote Your Health * To prevent worsening of your condition and complications * To maintain your health at the optimal level Directions to Meet Your Goals Take your medications as prescribed Follow your dietary instruction Follow activity as directed Ensure plenty of rest for recovery Drink fluids for hydration Keep your appointments as scheduled Take your immunizations and boosters as scheduled If your symptoms worsen call your PCP, if no PCP go to Urgent Care Center or Emergency Room Smoking is Dangerous to Your Health. Avoid second hand smoke Call the 24-hour crisis hotline for domestic abuse at Shanon Willoughby MD Jun 04, 2017 09:03
== END 2017-06-04 10:49 | disposition home or self-care (01) ==
LOC: HOBED 11:34 → H2EA 17:59
PROVIDERS: ADMIT Obstetrics & Gynecology; ATTEND Obstetrics & Gynecology
DX: O26.893 Other specified pregnancy related conditions, third trimester (principal); N13.2 Hydronephrosis with renal and ureteral calculous obstruction; Z3A.33 33 weeks gestation of pregnancy
CPT/HCPCS: 00910; 52332; 74176; 76775; 80048; 80053; 80307; 81001; 82365; 82370; 85025; 86850; 86900; 86901; 88300; 96374; 96376; 99285; C1769; G0481; J0131; J0330; J0690; J0702; J1170; J2370; J2405; J2550; J3010; J7120

== ENCOUNTER 2017-06-27 03:37 | Emergency (ER) | payer MEDICAID ==
[~2017-06-27 03:37] MED LIST changes: +NITR100C4 PO; +TAMS5CAP PO
[2017-06-27] MEDS ORDERED: TERBUTALINE INJ 1 MG/ML AMP SQ ONE (04:45)
[2017-06-27 04:51] LABS: BACTERIA, URINE RARE /hpf; BILIRUBIN, URINE NEG (NEG); BLOOD, URINE MOD (NEG); CALCIUM OXALATE CRYSTALS,URINE MOD /hpf; GLUCOSE,URINE NEG (NEG); KETONE, URINE NEG (NEG); MUCUS URINE FEW /lpf (OCC); NITRITE,URINE NEG (NEG); SQUAMOUS EPITHELIAL CELL URINE 5 /hpf (0-5); URINE COLOR YELLOW (YELLW/STRAW); URINE LEUKOCYTE ESTERASE LARGE (NEG)
[2017-06-27] MEDS ORDERED: cefTRIAXone INJ 2,000 MG in SODIUM CHLORIDE 0.9% INJ 100 ML IV ONE (06:00)
[2017-06-27 06:28] LABS: AUTOMATED NEUTROPHIL # 11.3 TH/MM3 (1.8-7.7); BASOPHIL % 0.2 % (0.0-2.0); EOSINOPHIL # 0.1 TH/MM3 (0-0.4); EOSINOPHIL % 0.7 % (0.0-4.0); HEMATOCRIT 34.2 % (35.0-46.0); HEMOGLOBIN 11.2 GM/DL (11.6-15.3); LYMPHOCYTE # 2.6 TH/MM3 (1.0-4.8); MEAN CORPUSCULAR HEMOGLOBIN 27.1 PG (27.0-34.0); MEAN CORPUSCULAR HGB CONC 32.7 % (32.0-36.0); MEAN PLATELET VOLUME 10.5 FL (7.0-11.0); MONO % 8.2 % (0.0-8.0); MONOCYTE # 1.3 TH/MM3 (0-0.9); NEUT % 73.9 % (16.0-70.0); PLATELET COUNT 246 TH/MM3 (150-450); RED BLOOD COUNT 4.12 MIL/MM3 (4.00-5.30); RED CELL DISTRIBUTION WIDTH 13.6 % (11.6-17.2); WHITE BLOOD COUNT 15.3 TH/MM3 (4.0-11.0)
[2017-06-27 06:58] LABS: BICARBONATE 21.7 MEQ/L (21.0-32.0); CREATININE 0.62 MG/DL (0.50-1.00)
--- NOTE | 2017-06-27 07:01 | PD ---
HPI Chief Complaint ctxs Date Seen: Jun 27, 2017 Time Seen: 06:58 Travel History International Travel<30 Days: No Contact w/Intl Traveler<30Days: No Known Affected Area: No History of Present Illness HPI pt. is a 26 y/o @ 36 6/7 weeks present w/ c/o ctxs. pt. w/ h/o kidney stones this w/ stent placement. pt. states that began having ctxs earlier in the evening and increased in intensity and freq. pt. have cervical check by nursing and found to be 1/long/high. pt. have ua and show uti. pt. given iv dose 2 gm rocephin and ivf. with improvement in ctxs. pt. also receive dose of terbutaline. Weeks Gestation: 36 Para: 0 : 2 History Past Medical History Narrative Medical pt. w/ h/o kidney stones this . Obstetric History Obstetric History , sab x 1 Past Surgical History Narrative Surgical ureteral stent placement Family History Family History: Negative Social History Alcohol Use: No Tobacco Use: No Substance Abuse: No Allergies-Medications (Allergen,Severity, Reaction): Coded Allergies: No Known Allergies (Unverified Allergy, Unknown, 05/31/17) Home Meds Active Scripts Tamsulosin (Flomax) 0.4 Mg Cap, 0.4 MG PO DAILY for Urinary Symptom Managemen for 30 Days, #30 CAP 0 Refills Prov:Shanon Willoughby MD 06/04/17 Nitrofurantoin Monohydrate Macrocrystals (Nitrofurantoin Monohydrate Macrocrystals) 100 Mg Cap, 100 MG PO DAILY for Urinary Symptom Managemen, #30 CAP 0 Refills Prov:Shanon Willoughby MD 06/04/17 Ondansetron (Zofran) 4 Mg Tab, 4 MG PO Q6HR Y for NAUSEA OR VOMITING, #10 TAB 0 Refills Prov:Justin Wilcox MD 06/14/16 Review of Systems Except as stated in HPI: all other systems reviewed are Neg Physical Exam Narrative GENERAL: Well-nourished, well-developed patient. SKIN: Warm and dry. HEAD: Normocephalic and atraumatic. EYES: No scleral icterus. No injection or drainage. ENT: No nasal drainage noted. Mucous membranes pink. Airway patent. NECK: Supple, trachea midline. No JVD. CARDIOVASCULAR: Regular rate and rhythm without murmurs, gallops, or rubs. RESPIRATORY: Breath sounds equal bilaterally. No accessory muscle use. BREASTS: Bilateral exam showed no masses , no retractions, no nipple discharge. ABDOMEN/GI: Abdomen soft, non-tender, bowel sounds present, no rebound, no guarding Gravid GENITOURINARY: External Genitalia: intact and normal in appearance Dilatation:1 Effacement: long Station: high Presentation: cephalic Uterine Contractions: q 3-5min FHT's: Category:1 Reactive: +] EXTREMITIES: No cyanosis or edema. BACK: Nontender without obvious deformity. No CVA tenderness. NEUROLOGICAL: Awake and alert. Motor and sensory grossly within normal limits. Five out of 5 muscle strength in all muscle groups. Normal speech. Data Data Vital Signs Reviewed: Yes Orders Orders Terbutaline Inj (Brethine Inj) (06/27/17 04:45) Urinalysis - C+S If Indicated (06/27/17 04:36) Urine Culture (06/27/17 04:30) Complete Blood Count With Diff (06/27/17 05:43) Basic Metabolic Panel (Bmp) (06/27/17 05:43) Ceftriaxone Inj (Rocephin Inj) (06/27/17 06:00) Dairy Inspector Clear For Discharge (06/27/17 ) Labs Laboratory Tests Test 06/27/17 04:30 06/27/17 06:00 Urine Color YELLOW Urine Turbidity HAZY Urine pH 6.0 Urine Specific [place] 1.022 Urine Protein 30 Urine Glucose (UA) NEG Urine Ketones NEG Urine Occult Blood MOD Urine Nitrite NEG Urine Bilirubin NEG Urine Urobilinogen LESS THAN 2.0 Urine Leukocyte Esterase LARGE Urine RBC 145 Urine WBC 19 Urine Squamous Epithelial Cells 5 Urine Calcium Oxalate Crystals MOD Urine Bacteria RARE Urine Mucus FEW Microscopic Urinalysis Comment CULTURE INDICATED White Blood Count 15.3 Red Blood Count 4.12 Hemoglobin 11.2 Hematocrit 34.2 Mean Corpuscular Volume 83.0 Mean Corpuscular Hemoglobin 27.1 Mean Corpuscular Hemoglobin Concent 32.7 Red Cell Distribution Width 13.6 Platelet Count 246 Mean Platelet Volume 10.5 Neutrophils (%) (Auto) 73.9 Lymphocytes (%) (Auto) 17.0 Monocytes (%) (Auto) 8.2 Eosinophils (%) (Auto) 0.7 Basophils (%) (Auto) 0.2 Neutrophils # (Auto) 11.3 Lymphocytes # (Auto) 2.6 Monocytes # (Auto) 1.3 Eosinophils # (Auto) 0.1 Basophils # (Auto) 0.0 CBC Comment DIFF FINAL Differential Comment Date/Time Source Procedure Growth Status 06/27/17 04:30 Urine Clean Catch Urine Culture Pending Received [facility] Medical Record Reviewed: Yes Plan pt. w/ uti. condition d/w pt. pt. not in active labor. pt. s/p iv rocephin. pt. to begin treatment dose of macrobid 100mg bid for 7 days and should take daily following that. fht reassuring. pt. given precautions for return. f/u as sched. Diagnosis Diagnosis: Primary Impression: Urinary tract infection affecting , antepartum Additional Impressions: 36 weeks gestation of H/O calculus of kidney during Disposition: 01 DISCHARGE HOME Patient Instructions: General Instructions, Having Your Baby: The Labor Process (GEN), Medical Induction of Labor (GEN), Abdominal Pain in (ED ), Urinary Tract Infection in (ED) Additional Instructions: keep follow up appt as scheduled. Departure Forms: Tests/Procedures Gallo Bright Jr., MD Jun 27, 2017 07:01
== END 2017-06-27 08:11 | disposition home or self-care (01) ==
LOC: HOBED 03:37
DX: O23.43 Unspecified infection of urinary tract in pregnancy, third trimester (principal); Z3A.36 36 weeks gestation of pregnancy; Z87.442 Personal history of urinary calculi
CPT/HCPCS: 59025; 80048; 81001; 85025; 87086; 96361; 96372; 96374; 99284; J0696; J3105

== ENCOUNTER 2017-06-29 17:50 | Inpatient (IN) | payer MEDICAID ==
[2017-06-29] VITALS (51 sets, daily range): BP systolic 122–127; BP diastolic 66–72; PULSE 81–95; RESP 18; TEMP 98–98.1
[~2017-06-29] VITALS: Ht 154.9 cm; Wt 68.0 kg
[2017-06-29] MEDS ORDERED: LIDOCAINE HCL 1% 50 ML VIAL I-DERMAL PRN (19:45)
[2017-06-29] MEDS: LACTATED RINGER'S 1000 ML IV SCH (19:45)
[2017-06-29] MEDS ORDERED: NS 1000 ML IV PRN (19:45)
[2017-06-29] MEDS ORDERED: LACTATED RINGER'S 1000 ML BOLUS IV PRN (19:45)
[2017-06-29] MEDS ORDERED: NS 500 ML BOLUS IV PRN (19:45)
[2017-06-29] MEDS ORDERED: PENICILLIN G POT 5,000,000 UNITS/NS 100 ML (Mini-Bag Plus) IV ONE ×2 (19:45)
[2017-06-29] MEDS ORDERED: PENICILLIN G POT 2,500,000 UNITS/NS 100 ML IV SCH ×2 (19:45)
[2017-06-29] MEDS ORDERED: CITRIC ACID-SODIUM CITRATE LIQ 30 ML UDC PO SCH (19:45)
[2017-06-29 19:56] LABS: AUTOMATED NEUTROPHIL # 8.3 TH/MM3 (1.8-7.7); BASOPHIL % 0.2 % (0.0-2.0); EOSINOPHIL # 0.1 TH/MM3 (0-0.4); EOSINOPHIL % 1.1 % (0.0-4.0); HEMOGLOBIN 10.8 GM/DL (11.6-15.3); LYMPH % 18.6 % (9.0-44.0); LYMPHOCYTE # 2.1 TH/MM3 (1.0-4.8); MEAN CELL VOLUME 82.6 FL (80.0-100.0); MEAN CORPUSCULAR HEMOGLOBIN 27.1 PG (27.0-34.0); MEAN CORPUSCULAR HGB CONC 32.8 % (32.0-36.0); MEAN PLATELET VOLUME 10.5 FL (7.0-11.0); MONOCYTE # 0.9 TH/MM3 (0-0.9); NEUT % 72.1 % (16.0-70.0); PLATELET COUNT 242 TH/MM3 (150-450); RED BLOOD COUNT 3.99 MIL/MM3 (4.00-5.30); RED CELL DISTRIBUTION WIDTH 13.8 % (11.6-17.2); WHITE BLOOD COUNT 11.5 TH/MM3 (4.0-11.0)
[2017-06-29] MEDS ORDERED: MINERAL OIL 10 ML VIAL TOPICAL PRN (20:00)
[2017-06-29] MEDS ORDERED: LIDOCAINE HCL 1% 50 ML VIAL INFIL PRN (20:00)
[2017-06-29] MEDS ORDERED: OXYTOCIN 30 UNITS 500ML PREMIX IV ONE (20:00)
[2017-06-29] MEDS ORDERED: DINOPROSTONE 10 MG INSERT-LEAVE FOR 12 HOURS VAGINAL ONE (20:00)
[2017-06-29 20:09] LABS: BILIRUBIN, URINE NEG (NEG); BLOOD, URINE MOD (NEG); GLUCOSE,URINE NEG (NEG); KETONE, URINE NEG (NEG); MUCUS URINE FEW /lpf (OCC); NITRITE,URINE NEG (NEG); SQUAMOUS EPITHELIAL CELL URINE 10 /hpf (0-5); URINE COLOR YELLOW (YELLW/STRAW); URINE LEUKOCYTE ESTERASE SMALL (NEG)
[2017-06-29 20:11] LABS: ALBUMIN 2.7 GM/DL (3.4-5.0); AST (GOT) 29 U/L (15-37); BICARBONATE 21.8 MEQ/L (21.0-32.0); BLOOD UREA NITROGEN 8 MG/DL (7-18); CALCIUM 8.8 MG/DL (8.5-10.1); CHLORIDE 107 MEQ/L (98-107); CREATININE 0.65 MG/DL (0.50-1.00); GLOMERULAR FILTRATION RATE 109 ML/MIN (>89); GLUCOSE,RANDOM 100 MG/DL (74-106); SODIUM (NA) 138 MEQ/L (136-145)
[2017-06-29 20:12] LABS: ALT (GPT) 24 U/L (10-53)
[2017-06-29 20:14] LABS: ALKALINE PHOSPHATASE 252 U/L (45-117); TOTAL BILIRUBIN ADULT 0.2 MG/DL (0.2-1.0); TOTAL PROTEIN 6.7 GM/DL (6.4-8.2)
--- NOTE | 2017-06-29 21:25 | HHI.HP ---
HPI Chief Complaint iol Date Seen: Jun 28, 2017 Travel History International Travel<30 Days: No Contact w/Intl Traveler<30Days: No Known Affected Area: No History of Present Illness HPI 26 yo with iup at 37 wk being admitted for iol for mild pre-eclampsia. She was seen in office on 06-27 and noted to have elevated bp and trace proteinuria. She had ih labs significant for P:C of 0.39 and UA of 5.1. She had increased edema with weight gain of 14 lb in 2 weeks. She denies any DILLON, blurry vision or ruq pain. Good FM, bpp 8/8 in office. no vb/lof. Weeks Gestation: 37 : 1 History Past Medical History Narrative Medical pfo, migraines, kidney stones, cervical dysplasia Obstetric History Obstetric History eab Past Surgical History Narrative Surgical lsc appendectomy, D&C, Ureteral stent Family History Family History: Negative Social History Alcohol Use: No Tobacco Use: No Substance Abuse: No Allergies-Medications (Allergen,Severity, Reaction): Coded Allergies: No Known Allergies (Unverified Allergy, Unknown, 05/31/17) Home Meds Active Scripts Tamsulosin (Flomax) 0.4 Mg Cap, 0.4 MG PO DAILY for Urinary Symptom Managemen for 30 Days, #30 CAP 0 Refills Prov:Shanon Willoughby MD 06/04/17 Nitrofurantoin Monohydrate Macrocrystals (Nitrofurantoin Monohydrate Macrocrystals) 100 Mg Cap, 100 MG PO DAILY for Urinary Symptom Managemen, #30 CAP 0 Refills Prov:Shanon Willoughby MD 06/04/17 Ondansetron (Zofran) 4 Mg Tab, 4 MG PO Q6HR Y for NAUSEA OR VOMITING, #10 TAB 0 Refills Prov:Justin Wilcox MD 06/14/16 Review of Systems General / Constitutional: No: Fever, Weight Gain, Chills, Other Eyes: No: Diploplia, Blurred Vision, Visual changes, Pain, Photophobia HENT: No: Headaches, Vertigo, Lightheadedness Cardiovascular: Edema, No: Irregular Rhythm, Chest Pain or Discomfort, Palpitations, Tachycardia, Syncope, Varicosities, Cyanosis Respiratory: No: Cough, Short of Breath, Other Gastrointestinal: No: Nausea, Vomiting, Diarrhea Genitourinary: No: Decreased Urinary Output, Oliguria Musculoskeletal: No: Limited ROM, Weakness, Cramping, Edema, Pain Skin: No Rash, No Itching, No Dryness, No Lumps, No Change in Pigmentation, No Change in Nails, No Alopecia, No Lesions Neurologic: No: Weakness, Dizziness, Syncope, Focal Abnormalities, Coordination Problem, Headache, Slurred Speech, Seizures Psychiatric: No: Depression, Suicidal Ideations, Homicidal Ideation Endocrine: No: Heat Intolerance, Cold Intolerance, Polydipsia, Polyuria, Other Physical Exam Vital Signs Date Time Temp Pulse Resp B/P (MAP) Pulse Ox O2 Delivery O2 Flow Rate FiO2 06/29/17 20:45 98.1 06/29/17 20:44 18 06/29/17 20:43 85 122/72 (89) 06/29/17 20:40 91 06/29/17 20:35 84 06/29/17 20:30 86 06/29/17 20:20 88 06/29/17 19:40 84 06/29/17 19:34 98.0 06/29/17 19:33 18 06/29/17 19:31 89 122/69 (86) Narrative GENERAL: Well-nourished, well-developed patient. SKIN: Warm and dry. HEAD: Normocephalic and atraumatic. EYES: No scleral icterus. No injection or drainage. ENT: No nasal drainage noted. Mucous membranes pink. Airway patent. NECK: Supple, trachea midline. No JVD. CARDIOVASCULAR: Regular rate and rhythm without murmurs, gallops, or rubs. RESPIRATORY: Breath sounds equal bilaterally. No accessory muscle use. ABDOMEN/GI: Abdomen soft, non-tender, bowel sounds present, no rebound, no guarding Gravid to [40-] weeks size Fundal Height: [-] GENITOURINARY: External Genitalia: intact and normal in appearance BUS glands: [-] Cervix: [-]1/th/high Dilatation: [-] Effacement: [-] Station: [-] Presentation: [ceph Membranes: [intact Uterine Contractions:irreg FHT's: Category: I Baseline: [-] Reactive: [-] Variability: [mod Decels: [- EXTREMITIES: No cyanosis or edema. BACK: Nontender without obvious deformity. No CVA tenderness. NEUROLOGICAL: Awake and alert. Motor and sensory grossly within normal limits. Five out of 5 muscle strength in all muscle groups. Normal speech. Caprini VTE Risk Assessment Caprini VTE Risk Assessment: No/Low Risk (score <= 1) VTE Pharm Contraindication: Epidural catheter Caprini Risk Assessment Model Point Value = 1 Point Value = 2 Point Value = 3 Point Value = 5 Age 41-60 Minor surgery BMI > 25 kg/m2 Swollen legs Varicose veins or History of unexplained or recurrent spontaneous Oral contraceptives or hormone replacement Sepsis (< 1 month) Serious lung disease, including pneumonia (< 1 month) Abnormal pulmonary function Acute myocardial infarction Congestive heart failure (< 1 month) History of inflammatory bowel disease Medical patient at bed rest Age 61-74 Arthroscopic surgery Major open surgery (> 45 min) Laparoscopic surgery (> 45 min) Malignancy Confined to bed (> 72 hours) Immobilizing plaster cast Central venous access Age >= 75 History of VTE Family history of VTE Factor V Leiden Prothrombin [id number] Lupus anticoagulant Anticardiolipin antibodies Elevated serum homocysteine Heparin-induced thrombocytopenia Other congenital or acquired thrombophilia Stroke (< 1 month) Elective arthroplasty Hip, pelvis, or leg fracture Acute spinal cord injury (< 1 month) Prophylaxis Regimen Total Risk Factor Score Risk Level Prophylaxis Regimen 0-1 Low Early ambulation 2 Moderate Order ONE of the following: *Sequential Compression Device (SCD) *Heparin 5000 units SQ BID 3-4 Higher Order ONE of the following medications: *Heparin 5000 units SQ TID *Enoxaparin/Lovenox 40 mg SQ daily (WT < 150 kg, CrCl > 30 mL/min) *Enoxaparin/Lovenox 30 mg SQ daily (WT < 150 kg, CrCl > 10-29 mL/min) *Enoxaparin/Lovenox 30 mg SQ BID (WT < 150 kg, CrCl > 30 mL/min) AND/OR *Sequential Compression Device (SCD) 5 or more Highest Order ONE of the following medications: *Heparin 5000 units SQ TID (Preferred with Epidurals) *Enoxaparin/Lovenox 40 mg SQ daily (WT < 150 kg, CrCl > 30 mL/min) *Enoxaparin/Lovenox 30 mg SQ daily (WT < 150 kg, CrCl > 10-29 mL/min) *Enoxaparin/Lovenox 30 mg SQ BID (WT < 150 kg, CrCl > 30 mL/min) AND *Sequential Compression Device (SCD) Data Data Vital Signs Reviewed: Yes Orders Orders Admit To Inpatient (06/29/17 ) Code Status (06/29/17 19:28) Vital Signs (Adult) .Per protocol (06/29/17 19:28) Activity Oob Ad Aggie (06/29/17 19:28) Heart (06/29/17:28) Amnioinfusion (06/29/17 19:28) Urinary Catheter Management .ONCE (06/29/17 19:28) Complete Blood Count With Diff (06/29/17:28) Hold Clot (06/29/17:28) Abo/Rh Blood Type (06/29/17:28) Urinalysis - C+S If Indicated (06/29/17 19:28) Ob/Psych Drug Screen, Urine (06/29/17 19:28) Resp Oxygen Non Rebreathe Mask (06/29/17 ) ^ Epidural / Intrathecal Infus (06/29/17 19:28) Comprehensive Metabolic Panel (06/29/17 19:28) Uric Acid (06/29/17 19:28) Specimen To Be Collected PRN (06/29/17 19:28) Activity Oob Ad Aggie (06/29/17 19:36) ^ Labor Induction (06/29/17 19:36) ^ Vaginal Insert (06/29/17 19:36) ^ Vaginal Lavage (06/29/17 19:36) Heart (06/29/17 19:36) Diet Clear Liquid (06/29/17 Dinner) Lactated Ringer's 1000 Ml Inj (Lr 1000 M (06/29/17 19:45) Lactated Ringer's 1000 Ml Inj (Lr 1000 M (06/29/17 19:45) Sodium Chlorid 0.9% 500 Ml Inj (Ns 500 M (06/29/17 19:45) Sodium Chlor 0.9% 1000 Ml Inj (Ns 1000 M (06/29/17 19:45) Lidocaine 1% Inj (50 Ml) (Xylocaine 1% I (06/29/17 19:45) Citric Acid-Sodium Citrate Liq (Bicitra (06/29/17 19:45) Fentanyl Inj (Fentanyl Inj) (06/29/17 20:00) Fentanyl Inj (Fentanyl Inj) (06/29/17 20:00) Penicillin G Potassium Inj (Pfizerpen-G (06/29/17 19:45) Penicillin G Potassium Inj (Pfizerpen-G (06/29/17 19:45) Oxytocin 30 Units-500ml Premix (Pitocin (06/29/17 20:00) Lidocaine 1% Inj (50 Ml) (Xylocaine 1% I (06/29/17 20:00) Light Mineral Oil (Muri-Lube Oil) (06/29/17 20:00) Dinoprostone Vag Insert (Cervidil Vag In (06/29/17 20:00) Lactated Ringer's 1000 Ml Inj (Lr 1000 M (06/29/17 20:00) Zolpidem (Ambien) (06/29/17 21:00) Group B Strep: Positive Labs Laboratory Tests Test 06/29/17 18:30 White Blood Count 11.5 Red Blood Count 3.99 Hemoglobin 10.8 Hematocrit 33.0 Mean Corpuscular Volume 82.6 Mean Corpuscular Hemoglobin 27.1 Mean Corpuscular Hemoglobin Concent 32.8 Red Cell Distribution Width 13.8 Platelet Count 242 Mean Platelet Volume 10.5 Neutrophils (%) (Auto) 72.1 Lymphocytes (%) (Auto) 18.6 Monocytes (%) (Auto) 8.0 Eosinophils (%) (Auto) 1.1 Basophils (%) (Auto) 0.2 Neutrophils # (Auto) 8.3 Lymphocytes # (Auto) 2.1 Monocytes # (Auto) 0.9 Eosinophils # (Auto) 0.1 Basophils # (Auto) 0.0 CBC Comment DIFF FINAL Differential Comment Urine Color YELLOW Urine Turbidity HAZY Urine pH 6.0 Urine Specific [place] 1.021 Urine Protein 30 Urine Glucose (UA) NEG Urine Ketones NEG Urine Occult Blood MOD Urine Nitrite NEG Urine Bilirubin NEG Urine Urobilinogen LESS THAN 2.0 Urine Leukocyte Esterase SMALL Urine RBC Urine WBC 7 Urine Squamous Epithelial Cells 10 Urine Mucus FEW Microscopic Urinalysis Comment CULT NOT INDICATED Blood Urea Nitrogen 8 Creatinine 0.65 Random Glucose 100 Total Protein 6.7 Albumin 2.7 Calcium Level 8.8 Uric Acid 4.3 Alkaline Phosphatase 252 Aspartate Amino Transf (AST/SGOT) 29 Alanine Aminotransferase (ALT/SGPT) 24 Total Bilirubin 0.2 Sodium Level 138 Potassium Level 3.7 Chloride Level 107 Carbon Dioxide Level 21.8 Anion Gap 9 Estimat Glomerular Filtration Rate 109 Urine Opiates Screen NEG Urine Barbiturates Screen NEG Urine Amphetamines Screen NEG Urine Benzodiazepines Screen NEG Urine Cocaine Screen NEG Urine Cannabinoids Screen NEG Assessment/Plan Problem List: (1) Mild pre-eclampsia ICD Codes: O14.00 - Mild to moderate pre-eclampsia, unspecified trimester (2) PFO (patent foramen ovale) ICD Codes: Q21.1 - Atrial septal defect (3) ASCUS with positive high risk HPV cervical ICD Codes: R87.610 - Atypical squamous cells of undetermined significance on cytologic smear of cervix (ASC-US); R87.810 - Cervical high risk human papillomavirus (HPV) DNA test positive (4) Chlamydia infection affecting in first trimester ICD Codes: O98.811 - Other maternal infectious and parasitic diseases complicating , first trimester; A74.9 - Chlamydial infection, unspecified (5) Ureteral calculus, left ICD Codes: N20.1 - Calculus of ureter Assessment and Plan 26 yo withIUP at 37 weeks by 7 wk u s being admitted for iol for pre- eclampsia 1) iol- will start w cervidil. Aware this will likely be a prolonged process. Discussed possibility of arrest of labor and need for cd if labor does not progress normally. 2) Pre-eclampsia without severe features- BP elevated above baseline, outpt P:C 0.39 and elevated UA of 5.1 Cont BP monitoring. If severe features develop, will need magnesium 3) Small pfo and/mild tr and mr found on cardiology workup for syncope. Normal EF 4) Left kidney stones with ureteral stent placed on 06-02-17 5) CT exposure in - test of reinfection negative 6) GBS positiv- pcn prophylaxis 7) Fetus large for gestational age- 93%ile 7 lb 11 oz on 06-24-17 8) ASCUS HPV + will repeat pap pp Kathia Schmidt MD Jun 29, 2017 21:25
[2017-06-29] MEDS: ZOLPIDEM TARTRATE 5 MG TAB PO SCH (22:55)
[2017-06-30] VITALS (262 sets, daily range): BP systolic 118–130; BP diastolic 57–74; PULSE 77–109; RESP 18; TEMP 98–98.4
[2017-06-30] MEDS: ZOLPIDEM TARTRATE 5 MG TAB PO SCH (01:00)
[2017-06-30] MEDS: PENICILLIN G POT 2,500,000 UNITS/NS 100 ML IV SCH ×4 (02:30→06:30)
--- NOTE | 2017-06-30 07:14 | HHI.PR ---
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 O: VS: Exam: 1/T/H/post/medium FHTs: 120s, moderate variability, accelerations present, no decelerations TOCO: Rare contractions A/P 26 yo at 37w 2d admitted for iol for pre-eclampsia\ 1. IUP: cat 1 tracing - cephalic by US yesterday, EFW 7.5lbs, 1) IOL: s/p cervidil, BS of 2, discussed Cook cath vs PV miso q4h, pt prefers Miso, discussed prolonged IOL. 2) Pre-eclampsia without severe features?: BP was elevated in the office per H& P, did have normal HELLP labs and significance was of a P:C of 0.37, BP since admission have been normotensive. 3) Maternal: Small pfo and/mild tr and mr found on cardiology workup for syncope. Normal EF 4) Left kidney stones with ureteral stent placed on 06-02-17, plan to follow-up with urology as an outpatient. 5) CT exposure in - test of reinfection negative 6) GBS positiv- pcn prophylaxis, can hold at this time until more favorable BS. 7) Fetus large for gestational age- 93%ile 7 lb 11 oz on 06-24-17 8) ASCUS HPV + will repeat pap pp Antonio Dorsey MD Jun 30, 2017 07:14
[2017-06-30] MEDS ORDERED: MISOPROSTOL 100 MCG TAB VAGINAL PRN (11:15)
[2017-06-30] MEDS: MISOPROSTOL 25 MCG TAB VAGINAL PRN ×2 (11:31→15:44)
[2017-06-30] MEDS: LACTATED RINGER'S 1000 ML IV SCH ×2 (11:45→19:52)
[2017-06-30] MEDS: LACTATED RINGER'S 1000 ML INJ 1,000 ML IV SCH ×2 (12:00→19:52)
--- NOTE | 2017-06-30 23:09 | HHI.PR ---
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 O: VS: Exam: 1.5/T/H/mid/medium, Cook catheter placed digitally with 60 and 60 cc, removed within 5 minutes of placement. FHTs: 120s, moderate variability, accelerations present, no decelerations TOCO: Rare contractions A/P 26 yo at 37w 2d admitted for iol for pre-eclampsia 1. IUP: cat 1 tracing - cephalic by US yesterday, EFW 7.5lbs, 1) IOL: s/p Cervidil, s/p PV miso x2, BS of 3, pt was rachelle too frequently for 3rd dose of miso, we discussed options, and felt Cook catheter would be best option at this time, it was placed and within several minutes patient and her partner felt it to be too uncomfortable to continue, it was removed. Patient and partner strongly about continuing with induction, limited options given tachysystole with Miso, will begin Pitocin, cervix too unfavorable for AROM at this time. May consider AROM in the morning if is still unchanged. Will desire epidural eventually. 2) Pre-eclampsia without severe features?: BP was elevated in the office per H& P, did have normal HELLP labs and significance was of a P:C of 0.37, BP since admission have been normotensive. 3) Maternal: Small pfo and/mild tr and mr found on cardiology workup for syncope. Normal EF 4) Left kidney stones with ureteral stent placed on 06-02-17, plan to follow-up with urology as an outpatient. 5) CT exposure in - test of reinfection negative 6) GBS positiv- pcn prophylaxis, held at this time, restart later. 7) Fetus large for gestational age- 93%ile 7 lb 11 oz on 06-24-17 8) ASCUS HPV + will repeat pap pp Antonio Dorsey MD Jun 30, 2017 23:09
[2017-06-30] MEDS ORDERED: OXYTOCIN 30 UNITS-500ML PREMIX 500 ML IV PRN (23:15)
[2017-06-30] MEDS ORDERED: PROMETHAZINE INJ 25 MG/ML VIAL IM PRN (23:30)
[2017-06-30] MEDS: ONDANSETRON HCL 4 MG/2 ML VIAL IV PUSH PRN (23:33)
[2017-07-01] VITALS (174 sets, daily range): BP systolic 95–134; BP diastolic 53–88; PULSE 63–107; RESP 15–22; TEMP 97.8–99.3; O2SAT 97–99
[2017-07-01] MEDS: LACTATED RINGER'S 1000 ML IV SCH (03:45)
[2017-07-01] MEDS: LACTATED RINGER'S 1000 ML INJ 1,000 ML IV SCH ×2 (03:58→12:00)
[2017-07-01] MEDS: PENICILLIN G POT 2,500,000 UNITS/NS 100 ML IV SCH ×8 (06:20→17:00)
[2017-07-01] MEDS ORDERED: fentaNYL 2MCG-BUPIV 0.125% INJ 100 ML ONE ×2 (07:09→13:47)
[2017-07-01] MEDS ORDERED: ePHEDrine/NS 25 MG/5 ML SYRINGE ONE (07:13)
--- NOTE | 2017-07-01 08:29 | PD.LABORPN ---
Subjective Subjective sleeping now. Unable to rest last night Objective Vital Signs Vital Signs Date Time Temp Pulse Resp B/P (MAP) Pulse Ox O2 Delivery O2 Flow Rate FiO2 07/01/17 08:05 81 07/01/17 08:03 78 108/67 (81) 07/01/17 08:00 95 07/01/17 08:00 82 106/71 (83) 07/01/17 07:57 91 103/74 (84) 07/01/17 07:55 79 114/76 (89) 07/01/17 07:55 85 07/01/17 07:55 83 07/01/17 07:52 79 107/53 (71) 07/01/17 07:50 81 07/01/17 07:50 82 07/01/17 07:48 79 114/72 (86) 07/01/17 07:45 80 117/71 (86) 07/01/17 07:45 82 07/01/17 07:45 81 07/01/17 07:42 81 117/72 (87) 07/01/17 07:40 86 07/01/17 07:40 85 07/01/17 07:39 84 112/73 (86) 07/01/17 07:36 83 107/71 (83) 07/01/17 07:35 85 07/01/17 07:35 84 07/01/17 07:33 80 121/62 (81) 07/01/17 07:30 94 07/01/17 07:30 83 07/01/17 07:30 85 116/68 (84) 07/01/17 07:28 87 105/57 (73) 07/01/17 07:27 98.2 20 07/01/17 07:26 88 119/88 (98) 07/01/17 07:25 87 07/01/17 07:25 86 07/01/17 07:24 86 123/78 (93) 07/01/17 07:20 97 07/01/17 07:20 98 07/01/17 07:15 107 07/01/17 07:10 95 07/01/17 06:55 80 07/01/17 06:50 81 07/01/17 06:45 82 07/01/17 06:40 74 07/01/17 06:35 74 4/6/18 06:32 74 114/64 (81) 4/6/18 06:30 75 4/6/18 06:27 16 4/6/18 06:25 85 4/6/18 06:20 76 4/6/18 06:15 77 4/6/18 06:10 78 4/6/18 06:05 81 4/6/18 06:00 77 4/6/18 05:55 69 4/6/18 05:50 78 4/6/18 05:45 73 4/6/18 05:40 80 4/6/18 05:35 83 4/6/18 05:30 73 4/6/18 05:28 97.8 4/6/18 05:25 73 4/6/18 05:20 77 4/6/18 05:15 95 4/6/18 05:10 76 4/6/18 04:55 79 4/6/18 04:50 73 4/6/18 04:45 70 4/6/18 04:40 75 4/6/18 04:35 73 4/6/18 04:30 72 4/6/18 04:25 72 4/6/18 04:20 71 4/6/18 04:15 73 4/6/18 04:10 75 4/6/18 04:05 81 4/6/18 04:00 75 4/6/18 03:59 98.2 15 4/6/18 03:56 77 121/61 (81) 4//18 03:55 77 4/6/18 03:50 73 4/6/18 03:45 74 4/6/18 03:40 91 4/6/18 03:35 72 4/6/18 03:30 81 4/6/18 03:25 79 4/6/18 03:20 84 4/6/18 03:15 78 4/6/18 03:10 73 4/6/18 03:05 78 4/6/18 03:00 76 4/6/18 02:55 74 4/6/18 02:50 75 4/6/18 02:45 75 4/6/18 02:40 74 4/6/18 02:35 75 4/6/18 02:30 76 4/6/18 02:25 73 4/6/18 02:20 79 4/6/18 02:15 73 4/6/18 02:10 83 07/01/17 02:05 88 07/01/17 02:00 79 07/01/17 01:55 79 07/01/17 01:50 81 07/01/17 01:45 81 07/01/17 01:40 83 07/01/17 01:35 82 07/01/17 01:30 80 07/01/17 01:25 78 07/01/17 01:20 90 07/01/17 01:15 81 07/01/17 01:10 81 07/01/17 01:05 75 07/01/17 01:00 75 07/01/17 00:55 79 07/01/17 00:50 75 07/01/17 00:45 73 07/01/17 00:40 76 07/01/17 00:35 75 07/01/17 00:30 74 Objective Pelvic Exam: Cervix: [50/-3 srom, iupc placed, MVU 110, nurse check Cephalic FHT's: Category: I Decels: [-] Weeks Gestation: 37 Assessment/Plan Problem List: (1) Mild pre-eclampsia ICD Codes: O14.00 - Mild to moderate pre-eclampsia, unspecified trimester (2) PFO (patent foramen ovale) ICD Codes: Q21.1 - Atrial septal defect (3) ASCUS with positive high risk HPV cervical ICD Codes: R87.610 - Atypical squamous cells of undetermined significance on cytologic smear of cervix (ASC-US); R87.810 - Cervical high risk human papillomavirus (HPV) DNA test positive (4) Chlamydia infection affecting in first trimester ICD Codes: O98.811 - Other maternal infectious and parasitic diseases complicating , first trimester; A74.9 - Chlamydial infection, unspecified (5) Ureteral calculus, left ICD Codes: N20.1 - Calculus of ureter Assessment and Plan 26 yo at 37w 3d admitted for iol 1) IOL: s/p Cervidil, s/p PV miso x2,pitocin now and srom. Will increase pitocin until adequate contractions 2) Pre-eclampsia evaluation- normal bp and labs in house. Only elevated protein. P:C was 0.39 in office. 3) Maternal: Small pfo and/mild tr and mr found on cardiology workup for syncope. Normal EF 4) Left kidney stones with ureteral stent placed on 06-02-17, plan to follow-up with urology as an outpatient. 5) CT exposure in - test of reinfection negative 6) GBS positive- pcn prophylaxis 7) Fetus large for gestational age- 93%ile 7 lb 11 oz on 06-24-17. Cat I tracing 8) ASCUS HPV + will repeat pap pp Brayan,Kathia Stout MD Jul 01, 2017 08:29
[2017-07-01] MEDS ORDERED: ceFAZolin INJ 1,000 MG VIAL IV ONE (12:00)
[2017-07-01] MEDS ORDERED: KETOROLAC TROMETHAMINE 30 MG/ML (IVP) VIAL IV PUSH ONE (12:00)
[2017-07-01] MEDS ORDERED: PROPOFOL 200 MG/20 ML AMP IV ONE (12:00)
[2017-07-01] MEDS ORDERED: ONDANSETRON HCL 4 MG/2 ML VIAL IV ONE (12:00)
[2017-07-01] MEDS ORDERED: LACTATED RINGER'S 1000 ML INJ 1,000 ML IV ONE (12:00)
[2017-07-01] MEDS ORDERED: LIDOCAINE 2%/EPINEPHrine PF 1:200,000 20ML SDV OTHER ONE (12:00)
[2017-07-01] MEDS ORDERED: OXYTOCIN 10 UNIT/ML AMP IV ONE (12:00)
[2017-07-01] MEDS ORDERED: LIDOCAINE HCL 2% PF 10 ML VIAL IV ONE (12:00)
[2017-07-01] MEDS ORDERED: DEXAMETHASONE SOD PHOS 4 MG/ML VIAL IV ONE (12:00)
[2017-07-01] MEDS: ONDANSETRON HCL 4 MG/2 ML VIAL IV PUSH PRN ×2 (12:29→17:16)
[2017-07-01] MEDS ORDERED: ONDANSETRON HCL 4 MG/2 ML VIAL IV PUSH ONE (12:30)
[2017-07-01] MEDS ORDERED: ACETAMINOPHEN 325 MG TAB PO ONE (15:45)
[2017-07-01] MEDS ORDERED: ACETAMINOPHEN 1000 MG/100 ML 100 ML IV ONE (18:48)
[2017-07-01] MEDS ORDERED: MORPHINE SULFATE PF 5 MG/10 ML VIAL ONE (18:48)
[2017-07-01] MEDS ORDERED: fentaNYL 2MCG-BUPIV 0.125% 100 ML EPIDURAL SCH (19:00)
[2017-07-01] MEDS ORDERED: DO NOT ADMINISTER ANTICOAGULANTS PRN (19:00)
[2017-07-01] MEDS ORDERED: NO SYSTEM NARCOTICS PRN (19:00)
[2017-07-01] MEDS ORDERED: ePHEDrine/NS 25 MG/5 ML SYRINGE IV PUSH PRN (19:00)
[2017-07-01] MEDS ORDERED: EPIDURAL-NO SYSTEMIC NARCOTICS PRN (19:25)
[2017-07-01] MEDS ORDERED: EPIDURAL-DIPHENHYDRAMINE HCL 50 MG CAP PO PRN (19:25)
[2017-07-01] MEDS ORDERED: EPIDURAL-DO NOT ADMINISTER ANTICOAGULANTS PRN (19:25)
[2017-07-01] MEDS ORDERED: EPIDURAL-NALOXONE HCL 0.4 MG/ML AMP IV PUSH PRN (19:25)
[2017-07-01] MEDS ORDERED: EPIDURAL-DIPHENHYDRAMINE HCL 50 MG/ML VIAL IV PUSH PRN (19:25)
[2017-07-01] MEDS ORDERED: CITRIC ACID-SODIUM CITRATE LIQ 30 ML UDC PO SCH (19:45)
[2017-07-01] MEDS ORDERED: METHYLERGONOVINE MALEATE 0.2 MG/ML VIAL ONE (19:46)
[2017-07-01] MEDS ORDERED: SODIUM CHLORIDE 0.9% FLUSH 10 ML FLUSH IV FLUSH PRN (20:30)
[2017-07-01] MEDS ORDERED: OXYTOCIN 30 UNITS-500ML PREMIX 500 ML IV ONE (20:30)
[2017-07-01] MEDS ORDERED: ACETAMINOPHEN 325 MG TAB PO PRN (20:30)
[2017-07-01] MEDS ORDERED: SIMETHICONE 80 MG CHEWABLE TAB PO PRN (20:30)
[2017-07-01] MEDS ORDERED: oxyCODONE/ACETAMINOPHEN 5 MG/325 MG TAB PO PRN (20:30)
[2017-07-01] MEDS ORDERED: ONDANSETRON HCL 4 MG/2 ML VIAL IV PUSH PRN (20:30)
--- NOTE | 2017-07-01 20:33 | PD.OB.DELI ---
Procedure Note Section Procedure Pre Op Diagnosis: (1) Arrested labor (2) PFO (patent foramen ovale) (3) Ureteral calculus, left (4) Chlamydia infection affecting in first trimester (5) ASCUS with positive high risk HPV cervical Post Op Diagnosis: (1) Arrested labor (2) PFO (patent foramen ovale) (3) Ureteral calculus, left (4) Chlamydia infection affecting in first trimester (5) ASCUS with positive high risk HPV cervical Performed by Kathia Schmidt Procedure: Primary Low Transverse Sec Indication for delivery: Other (arrest of dilation, LOT presentation) Previous condition: None Informed consent obtained: For anesthesia, For procedure Confirmed correct: Patient, Procedure, Site, Time-out taken Anesthesia: Epidural Medication prior to procedure: As documented in eMAR Monitoring during procedure: Blood pressure monitoring, Pulse oximetry Urinary catheter: Inserted using sterile technique, To dependent drainage, ml urine output (200) Sterile preparation: With 2% chlorexidine (Hibiclens) Position: Supine with wedge to right side, Supine with safety belt applied Operative Features Skin Incision: Pfannenstiel Uterine Incision: Low transverse w/knife / blunt ext Membranes Ruptured: Previously, Appearance of fluid (clear) Presentation: Other (LOT) Delivery date: Jul 01, 2017 Delivery time: 19:43 Delivery of infant: Uneventful Infant: Male One Minute : 8 Five Minute : 9 Medications: Antibiotics, Oxytocin, Ergot derivatives Estimated blood loss: 500 ml Procedure tolerated: Well Maternal Condition: Stable Condition: Stable Procedure in detail dictation Kathia Schmidt MD Jul 01, 2017 20:33
[2017-07-01] MEDS: SODIUM CHLORIDE 0.9% FLUSH 10 ML FLUSH IV FLUSH SCH (21:00)
--- NOTE | 2017-07-01 21:34 | MP ---
cc: Kathia Schmidt MD DATE OF OPERATION: 07/01/2017 PREOPERATIVE DIAGNOSES: 1. Arrest of labor. 2. Patent foramen ovale. 3. Ureteral calculus with stents in place. 4. Chlamydia infection affecting . 5. Atypical squamous cells of undetermined significance Pap with high-risk human papillomavirus. POSTOPERATIVE DIAGNOSES: 1. Arrest of labor. 2. Patent foramen ovale. 3. Ureteral calculus with stents in place. 4. Chlamydia infection affecting . 5. Atypical squamous cells of undetermined significance Pap with high-risk human papillomavirus. SURGEON: Kathia Schmidt MD PROCEDURE PERFORMED: Primary low transverse delivery. INDICATIONS: The patient is a 26-year-old G2, P0-0-1-0, with intrauterine at 37 weeks who was admitted for possible mild preeclampsia. She had mild range blood pressure in the office and had a protein creatinine ratio significant for 0.39. She on admission was found to have normal blood pressure, just trace proteinuria but given her other medical conditions of renal calculi with a stent in place induction was still carried out. She received Cervidil, misoprostol x 2 doses followed by Pitocin. She spontaneously ruptured. She progressed to 9 cm and -1 station. She had no cervical dilation for 3 hours and no descent of head. Discussed with the patient suspected cephalopelvic disproportion and indication for primary delivery. ANESTHESIA: Epidural. ANTIBIOTICS: Ancef 2 grams IV given preincision. DEEP VENOUS THROMBOSIS PROPHYLAXIS: SCDs bilateral extremities. IV FLUIDS: 1500 mL of lactated Ringer. URINE OUTPUT: 200 mL of marc-colored urine. ESTIMATED BLOOD LOSS: 700 mL COMPLICATIONS: None. COUNTS: Correct x 3. Specimen: Cord blood INTRAOPERATIVE FINDINGS: Viable male , weight of 8 pounds. Apgars of 8 and 9 at one minute and nine minutes respectively. Presentation left occiput transverse with significant molding. Maternal anatomy, normal uterus, tubes and ovaries. Placenta intact, 3-vessel cord. PROCEDURE IN DETAIL: After reviewing informed consent, the patient was taken to the operating room, where epidural was redosed. The Jimenez was already in place. SCDs were placed. The abdomen was prepped and draped in normal sterile fashion. The patient was still having minimal pain. She was given laughing gas to improve anesthesia affect. A scalpel was used to make a Pfannenstiel skin incision. This was carried down to the underlying layer of fascia with the Bovie. The fascia was incised in the midline. This incision was extended bilaterally with Holliday scissors. The superior aspect of the fascia was grasped with Claudine clamps, elevated, and the rectus muscles dissected off with Holliday scissors. The same was repeated inferiorly. The rectus muscles were in the midline with a hemostat. The peritoneum was tented and entered bluntly. This incision was extended bluntly. A bladder blade was placed. A bladder flap was created with Metzenbaum scissors and further developed digitally. Bladder blade was reintroduced. A low transverse uterine incision was made with the scalpel. This was extended bluntly. The head was flexed and brought to the level of the hysterotomy. Gentle fundal pressure was used to deliver the head. The body readily followed. Baby was bulb suctioned. Delayed cord clamping was performed. Immediate infusion of IV Pitocin was started after delivery of the . The placenta was removed with gentle cord traction and uterine massage. All debris of clots and membranes were removed with moist laparotomy sponges. Poor tone was noted. A dose of Methergine was given with improvement in tone. The uterus was exteriorized. The uterus was closed with #1 chromic in a running locked fashion followed by an imbricated layer. The posterior cul-de-sac was irrigated and suctioned. The hysterotomy was noted to be hemostatic. The uterus was returned to the abdomen and anterior cul-de-sac was irrigated and suctioned. The peritoneum was closed with 2-0 chromic in a running fashion. The fascia was closed with #1 Vicryl in a running fashion. The subcutaneous tissue was irrigated and suctioned. Hemostasis was obtained with the Bovie. The subcutaneous tissue was less than 2 cm. The skin was closed with 3-0 Monocryl in subcuticular fashion. A pressure dressing was placed. The patient tolerated the procedure well. REMARKS: The patient is an acceptable candidate for vaginal after delivery. DISPOSITION: Stable to PACU. Kathia Schmidt MD PCE/rt , 08:39 PM , 09:33 PM LYLY
[2017-07-01] MEDS ORDERED: OXYTOCIN 30 UNITS-500ML PREMIX 500 ML ONE (21:37)
[2017-07-02 01:00] VITALS: BP 134/69; PULSE 64; RESP 18; TEMP 98.3; O2SAT 98
[2017-07-02] MEDS ORDERED: LACTATED RINGER'S 1000 ML INJ 1,000 ML IV SCH (01:29)
[2017-07-02] MEDS: IBUPROFEN 600 MG TAB PO PRN ×3 (02:17→21:50)
[2017-07-02 04:00] VITALS: BP 121/65; PULSE 83; RESP 18; TEMP 98.1; O2SAT 97
[2017-07-02] MEDS ORDERED: OXYTOCIN 30 UNITS-500ML PREMIX 500 ML IV PRN (06:30)
[2017-07-02 07:29] LABS: AUTOMATED NEUTROPHIL # 16.5 TH/MM3 (1.8-7.7); BASOPHIL % 0.2 % (0.0-2.0); HEMATOCRIT 26.4 % (35.0-46.0); HEMOGLOBIN 8.6 GM/DL (11.6-15.3); LYMPH % 8.5 % (9.0-44.0); LYMPHOCYTE # 1.7 TH/MM3 (1.0-4.8); MEAN CELL VOLUME 82.3 FL (80.0-100.0); MEAN CORPUSCULAR HEMOGLOBIN 26.7 PG (27.0-34.0); MEAN CORPUSCULAR HGB CONC 32.5 % (32.0-36.0); MEAN PLATELET VOLUME 10.3 FL (7.0-11.0); MONO % 8.1 % (0.0-8.0); MONOCYTE # 1.6 TH/MM3 (0-0.9); NEUT % 83.2 % (16.0-70.0); PLATELET COUNT 222 TH/MM3 (150-450); RED BLOOD COUNT 3.21 MIL/MM3 (4.00-5.30); RED CELL DISTRIBUTION WIDTH 13.7 % (11.6-17.2); WHITE BLOOD COUNT 19.8 TH/MM3 (4.0-11.0)
[2017-07-02 08:45] VITALS: BP 117/66; PULSE 74; RESP 18; TEMP 98.4
--- NOTE | 2017-07-02 09:42 | HHI.OB ---
Subjective Post Operative Day: 1 Remarks doing well, voiding, eating. still min ambulation. Pain better controlled today Objective Vitals/I&O Vital Signs Date Time Temp Pulse Resp B/P (MAP) Pulse Ox O2 Delivery O2 Flow Rate FiO2 07/02/17 04:00 98.1 83 18 121/65 (83) 97 07/02/17 01:00 98.3 64 18 134/69 (90) 98 07/01/17 22:30 63 18 121/71 (88) 98 07/01/17 22:30 98.2 07/01/17 21:30 98.3 07/01/17 21:15 80 18 115/60 (78) 97 07/01/17 21:00 22 98 07/01/17 21:00 86 116/57 (76) 07/01/17 20:48 88 22 97 07/01/17 20:48 108/59 (75) 07/01/17 20:35 18 99 07/01/17 20:34 122/71 (88) 07/01/17 20:34 98.0 87 07/01/17 17:30 96 134/78 (96) 07/01/17 17:15 103 121/76 (91) 07/01/17 17:00 105 117/77 (90) 07/01/17 16:52 99.3 07/01/17 16:45 91 115/75 (88) 07/01/17 16:30 84 121/75 (90) 07/01/17 16:15 84 115/75 (88) 07/01/17 16:00 85 115/75 (88) 07/01/17 15:45 83 122/69 (86) 07/01/17 15:30 82 126/73 (90) 07/01/17 15:15 84 123/82 (96) 07/01/17 15:00 99.1 07/01/17 15:00 84 119/80 (93) 07/01/17 14:45 80 101/64 (76) 07/01/17 14:30 80 104/59 (74) 07/01/17 14:15 76 104/62 (76) 07/01/17 14:00 77 105/64 (78) 07/01/17 13:46 83 95/64 (74) 07/01/17 13:30 86 111/68 (82) 07/01/17 13:29 99.1 07/01/17 13:15 85 107/62 (77) 07/01/17 13:00 87 112/60 (77) 07/01/17 12:45 81 121/71 (88) 07/01/17 12:30 81 120/73 (89) 07/01/17 12:15 83 121/74 (90) 07/01/17 12:00 82 114/73 (87) 07/01/17 12:00 16 07/01/17 11:45 80 119/71 (87) 07/01/17 11:30 87 116/70 (85) 07/01/17 11:30 97.9 22 07/01/17 11:15 92 123/71 (88) 07/01/17 11:00 85 129/79 (96) 07/01/17 10:45 80 125/75 (92) 07/01/17 10:30 84 123/75 (91) 07/01/17 10:15 94 122/86 (98) 07/01/17 10:00 87 113/71 (85) 07/01/17 09:50 95 07/01/17 09:45 82 112/67 (82) 07/01/17 09:45 79 07/01/17 09:40 81 Result Diagram: 07/02/17 0654 06/29/17 5520 Objective Remarks GENERAL: Well-nourished, well-developed patient. CARDIOVASCULAR: Regular rate and rhythm without murmurs, gallops, or rubs. RESPIRATORY: Breath sounds equal bilaterally. No accessory muscle use. ABDOMEN/GI: Abdomen soft, non-tender, bowel sounds present. Incision: dressing, Clean, dry and intact. Fundus: Firm, non-tender at umbilicus. GENITOURINARY: Light to moderate bleeding. EXTREMITIES: No cyanosis or edema, non-tender, without signs of DVT. Medications and IVs Current Medications Medications (Trade) Dose Ordered Sig/Erich Route Start Time Stop Time Status Last Admin Lactated Ringer's 1,000 ml @ 100 mls/hr Q10H IV 07/02/17 01:29 07/02/17 21:28 Oxytocin 500 ml @ 100 mls/hr UNSCH X1 PRN IV 07/02/17 06:30 07/03/17 06:29 (NS Flush) 2 ml BID IV FLUSH 07/01/17 21:00 (NS Flush) 2 ml UNSCH PRN IV FLUSH 07/01/17 20:30 (Mylicon Chew) 80 mg QID PRN PO 07/01/17 20:30 (Tylenol) 650 mg Q6H PRN PO 07/01/17 20:30 07/02/17 04:20 (Motrin) 600 mg Q6H PRN PO 07/01/17 20:30 07/02/17 02:17 (Percocet 5-325 Mg) 1 tab Q4H PRN PO 07/01/17 20:30 (Percocet 5-325 Mg) 2 tab Q4H PRN PO 07/01/17 20:30 (Romy-Colace) 2 tab Q12H PRN PO 07/01/17 20:30 (M-M-R Ii Inj) 0.5 ml ONCE ONCE SQ 07/02/17 16:00 07/02/17 16:01 (Boostrix Inj) 0.5 ml ONCE ONCE IM 07/02/17 16:00 07/02/17 16:01 (Zofran Inj) 4 mg Q6H PRN IV PUSH 07/01/17 20:30 Miscellaneous Information NO SYSTEMIC NARCOTICS TO BE GIVEN FO... UNSCH PRN .XX 07/01/17 19:25 07/02/17 19:24 (Narcan Inj) 0.4 mg UNSCH PRN IV PUSH 07/01/17 19:25 07/02/17 19:24 (Benadryl Inj) 25 mg Q6H PRN IV PUSH 07/01/17 19:25 07/02/17 19:24 (Benadryl) 50 mg Q6H PRN PO 07/01/17 19:25 07/02/17 19:24 Miscellaneous Information ALL NURSING DEPARTMENTS UNSCH PRN .XX 07/01/17 19:25 07/02/17 19:24 Assessment/Plan Problem List: (1) Mild pre-eclampsia ICD Codes: O14.00 - Mild to moderate pre-eclampsia, unspecified trimester (2) PFO (patent foramen ovale) ICD Codes: Q21.1 - Atrial septal defect (3) ASCUS with positive high risk HPV cervical ICD Codes: R87.610 - Atypical squamous cells of undetermined significance on cytologic smear of cervix (ASC-US); R87.810 - Cervical high risk human papillomavirus (HPV) DNA test positive (4) Chlamydia infection affecting in first trimester ICD Codes: O98.811 - Other maternal infectious and parasitic diseases complicating , first trimester; A74.9 - Chlamydial infection, unspecified (5) Ureteral calculus, left ICD Codes: N20.1 - Calculus of ureter Assessment and Plan 26 yo s/p primary ltcd for arrest of dilation at 9 cm, LOT presentation 1) POD 1 cont routine supportive care, remove mendoza, ambulate, adv diet 2) Left kidney stones with ureteral stent placed on 06-02-17 3) CT exposure in - test of reinfection negative 4) GBS positive 5) ASCUS HPV + will repeat pap pp Kathia Schmidt MD Jul 02, 2017 09:42
[2017-07-02] MEDS: DOCUSATE SODIUM 50 MG/SENNA 8.6 MG TAB PO PRN (10:48)
[2017-07-02] MEDS: oxyCODONE/ACETAMINOPHEN 5 MG/325 MG TAB PO PRN ×2 (14:45→21:50)
[2017-07-02] MEDS ORDERED: MEASLES, MUMPS, RUBELLA VACCINE 0.5 ML VIAL SQ ONE (16:00)
[2017-07-02] MEDS ORDERED: DIPHTH/TETANUS/ACEL PERTUSSIS (BOOSTER) 0.5 ML VIAL/PFS IM ONE (16:00)
[2017-07-02 16:45] VITALS: BP 122/65; PULSE 87; RESP 18; TEMP 97.9
[2017-07-02] MEDS: SODIUM CHLORIDE 0.9% FLUSH 10 ML FLUSH IV FLUSH SCH (19:31)
[2017-07-02 21:00] VITALS: BP 128/70; PULSE 102; RESP 18; TEMP 98.6; O2SAT 98
[2017-07-03] MEDS: IBUPROFEN 600 MG TAB PO PRN ×2 (03:03→11:27)
[2017-07-03] MEDS: oxyCODONE/ACETAMINOPHEN 5 MG/325 MG TAB PO PRN ×2 (03:03→11:27)
[2017-07-03] MEDS: DOCUSATE SODIUM 50 MG/SENNA 8.6 MG TAB PO PRN (03:03)
[2017-07-03] MEDS ORDERED: OXYC1TAB63 PO (08:58)
[2017-07-03] MEDS ORDERED: IBUP-232 PO (08:58)
--- NOTE | 2017-07-03 08:59 | HHI.DCPOC ---
Discharge Care Plan Diagnosis: (1) Arrested labor (2) Ureteral calculus, left Your Health Problems Are: Incisions/drains delivery Report Symptoms to Your Doctor -Temperature above 100.5 degrees -Redness, of incision or excessive or foul smelling drainage -Unusual pain or calf pain -Increased vaginal bleeding -Painful or difficulty urinating -Feelings of extreme sadness or anxiety after 2 weeks Goals to Promote Your Health * To prevent worsening of your condition and complications * To maintain your health at the optimal level Directions to Meet Your Goals Take your medications as prescribed Follow your dietary instruction Follow activity as directed Ensure plenty of rest for recovery Drink fluids for hydration Keep your appointments as scheduled Take your immunizations and boosters as scheduled If your symptoms worsen call your PCP, if no PCP go to Urgent Care Center or Emergency Room Smoking is Dangerous to Your Health. Avoid second hand smoke Call the 24-hour crisis hotline for domestic abuse at Kathia Schmidt MD Jul 03, 2017 08:59
--- NOTE | 2017-07-03 09:01 | HHI.OB ---
Subjective Post Operative Day: 2 Remarks doing well, walking, passing flatus, pain ok w meds. Objective Vitals/I&O Vital Signs Date Time Temp Pulse Resp B/P (MAP) Pulse Ox O2 Delivery O2 Flow Rate FiO2 07/02/17 21:00 98.6 102 18 128/70 (89) 98 07/02/17 16:45 97.9 07/02/17 16:45 87 18 122/65 (84) Result Diagram: 07/02/17 0654 06/29/17 1830 Objective Remarks GENERAL: Well-nourished, well-developed patient. CARDIOVASCULAR: Regular rate and rhythm without murmurs, gallops, or rubs. RESPIRATORY: Breath sounds equal bilaterally. No accessory muscle use. ABDOMEN/GI: Abdomen soft, non-tender, bowel sounds present. Incision: Clean, dry and intact. Fundus: Firm, non-tender at umbilicus. GENITOURINARY: Light to moderate bleeding. EXTREMITIES: No cyanosis or edema, non-tender, without signs of DVT. Medications and IVs Current Medications Medications (Trade) Dose Ordered Sig/Erich Route Start Time Stop Time Status Last Admin (NS Flush) 2 ml BID IV FLUSH 07/01/17 21:00 (NS Flush) 2 ml UNSCH PRN IV FLUSH 07/01/17 20:30 (Mylicon Chew) 80 mg QID PRN PO 07/01/17 20:30 (Tylenol) 650 mg Q6H PRN PO 07/01/17 20:30 07/02/17 04:20 (Motrin) 600 mg Q6H PRN PO 07/01/17 20:30 07/03/17 03:03 (Percocet 5-325 Mg) 1 tab Q4H PRN PO 07/01/17 20:30 07/02/17 10:49 (Percocet 5-325 Mg) 2 tab Q4H PRN PO 07/01/17 20:30 07/03/17 03:03 (Romy-Colace) 2 tab Q12H PRN PO 07/01/17 20:30 07/03/17 03:03 (Zofran Inj) 4 mg Q6H PRN IV PUSH 07/01/17 20:30 Assessment/Plan Problem List: (1) Mild pre-eclampsia ICD Codes: O14.00 - Mild to moderate pre-eclampsia, unspecified trimester (2) PFO (patent foramen ovale) ICD Codes: Q21.1 - Atrial septal defect (3) ASCUS with positive high risk HPV cervical ICD Codes: R87.610 - Atypical squamous cells of undetermined significance on cytologic smear of cervix (ASC-US); R87.810 - Cervical high risk human papillomavirus (HPV) DNA test positive (4) Chlamydia infection affecting in first trimester ICD Codes: O98.811 - Other maternal infectious and parasitic diseases complicating , first trimester; A74.9 - Chlamydial infection, unspecified (5) Ureteral calculus, left ICD Codes: N20.1 - Calculus of ureter Assessment and Plan 26 yo s/p primary ltcd for arrest of dilation at 9 cm, LOT presentation 1) POD 2 cont routine supportive care, meeting d/c criteria 2) Left kidney stones with ureteral stent placed on 06-02-17, will call urologist tomorrow to plan stent removal/schedule f/u visit 3) CT exposure in - test of reinfection negative 4) GBS positive 5) ASCUS HPV + will repeat pap pp Kathia Schmidt MD Jul 03, 2017 09:01
[2017-07-03 09:10] VITALS: BP 116/70; PULSE 82; RESP 18; TEMP 98.2
== END 2017-07-03 12:47 | disposition home or self-care (01) | DRG 765 ==
LOC: H2EA 17:50 → H1EA 07-01 21:53
PROVIDERS: ADMIT Obstetrics & Gynecology; ATTEND Obstetrics & Gynecology
PROC: 3E0P7VZ Introduction of Hormone into Female Reproductive, Via Natural or Artificial Opening (ICD-10-PCS; 2017-06-29)
PROC: 0U7C7ZZ Dilation of Cervix, Via Natural or Artificial Opening (ICD-10-PCS; 2017-06-30)
PROC: 10D00Z1 Extraction of Products of Conception, Low, Open Approach (ICD-10-PCS; principal; 2017-07-01)
PROC: 10H07YZ Insertion of Other Device into Products of Conception, Via Natural or Artificial Opening (ICD-10-PCS; 2017-07-01)
PROC: 3E0R3BZ Introduction of Anesthetic Agent into Spinal Canal, Percutaneous Approach (ICD-10-PCS; 2017-07-01)
PROC: 00HU33Z Insertion of Infusion Device into Spinal Canal, Percutaneous Approach (ICD-10-PCS; 2017-07-01)
DX: O14.04 Mild to moderate pre-eclampsia, complicating childbirth (principal); O75.89 Other specified complications of labor and delivery; Q21.1 Atrial septal defect; O36.60X0 Maternal care for excessive fetal growth, unspecified trimester, not applicable or unspecified; O99.820 Streptococcus B carrier state complicating pregnancy; O33.8 Maternal care for disproportion of other origin; R87.810 Cervical high risk human papillomavirus (HPV) DNA test positive; O62.1 Secondary uterine inertia; Z37.0 Single live birth; Z3A.37 37 weeks gestation of pregnancy; Z87.442 Personal history of urinary calculi
CPT/HCPCS: 59025; 80048; 80053; 80307; 81001; 84550; 85025; 86900; 86901; 87086; 90715; 96361; 96372; 96374; G0481; J0131; J0690; J0696; J1100; J1885; J2210; J2274; J2405; J2540; J2590; J3010; J3105; J7120

== ENCOUNTER → 2017-08-03 | Day surgery (SDC) | payer MEDICAID ==
[~2017-08-03] MED LIST changes: +DEXAMETHASONE SOD PHOS 4 MG/ML VIAL IV; +LIDOCAINE HCL 1% PF 5 ML SYRINGE OTHER; +METOPROLOL TARTRATE 25 MG TAB PO; +MIDAZOLAM HCL 2 MG/2 ML VIAL; -NITR100C4 PO; +ONDANSETRON HCL 4 MG/2 ML VIAL IV; +ONDANSETRON HCL 4 MG/2 ML VIAL IV PUSH; +PHENYLEPH/NS 1000 MCG/10 ML SYR IV; +PROPOFOL 200 MG/20 ML AMP IV; +ROCURONIUM INJ 50 MG/5 ML SYRINGE IV PUSH; +SODIUM CHLORID 0.9% 500 ML IV; +SUCCINYLCHOLINE CHLORIDE 100 MG/5 ML SYRINGE IV PUSH; -TAMS5CAP PO; -ZOFR4TAB PO; +ePHEDrine/NS 25 MG/5 ML SYRINGE IV; +oxyCODONE/ACETAMINOPHEN 5 MG/325 MG TAB PO
[2017-08-03] MEDS: CHLORHEXIDINE GLUCONATE 2 % 1 PACK (2 CLOTHS) TOPICAL (12:00)
[2017-08-03] MEDS: LACTATED RINGER'S 1000 ML IV (12:00)
[2017-08-03] MEDS: POVIDONE IODINE 5% (ANTISEPSIS KIT) 4 APPLICATIONS EACH NARE (12:00)
[2017-08-03 12:35] LABS: AUTOMATED NEUTROPHIL # 4.3 TH/MM3 (1.8-7.7); BASOPHIL % 0.6 % (0.0-2.0); EOSINOPHIL # 0.2 TH/MM3 (0-0.4); EOSINOPHIL % 2.5 % (0.0-4.0); HEMATOCRIT 34.2 % (35.0-46.0); HEMO FLAGS DIFF FINAL; HEMOGLOBIN 10.8 GM/DL (11.6-15.3); LYMPH % 25.4 % (9.0-44.0); LYMPHOCYTE # 1.7 TH/MM3 (1.0-4.8); MEAN CELL VOLUME 79.6 FL (80.0-100.0); MEAN CORPUSCULAR HEMOGLOBIN 25.2 PG (27.0-34.0); MEAN CORPUSCULAR HGB CONC 31.7 % (32.0-36.0); MEAN PLATELET VOLUME 9.5 FL (7.0-11.0); MONO % 8.3 % (0.0-8.0); MONOCYTE # 0.6 TH/MM3 (0-0.9); NEUT % 63.2 % (16.0-70.0); PLATELET COUNT 335 TH/MM3 (150-450); RED BLOOD COUNT 4.29 MIL/MM3 (4.00-5.30); RED CELL DISTRIBUTION WIDTH 14.5 % (11.6-17.2); WHITE BLOOD COUNT 6.8 TH/MM3 (4.0-11.0)
[2017-08-03] MEDS: *ONDANSETRON 4 MG VIAL PERIprocedural Use ONLY (15:00)
[2017-08-03] MEDS: *morphine SULFATE 8 MG/ML PERIprocedure ONLY (15:13)
== END | disposition home or self-care (01) ==
LOC: HSDC 10:44
DX: N20.2 Calculus of kidney with calculus of ureter (principal); Z01.818 Encounter for other preprocedural examination
CPT/HCPCS: 50590; 74018; 85025